=== PATIENT | male | born 1975 | race Caucasian/White ===

== ENCOUNTER 2018-06-15 21:47 | Emergency (ER) | payer MEDICAID ==
[~2018-06-15] VITALS: Ht 165.1 cm; Wt 74.4 kg
[~2018-06-15 21:47] MED LIST: AZIT250T PO; CODE118S PO; GLIP5TAB13 PO; IBUP-1542 PO; METF-849 PO; OSEL75CA23 PO
[2018-06-15 22:01] VITALS: BP 186/91; PULSE 88; RESP 19; Ht 165.1 cm; Wt 74.4 kg
[2018-06-16] MEDS ORDERED: CEPH-443 PO (01:35)
[2018-06-16] MEDS ORDERED: SULF1TAB31 PO (01:35)
--- NOTE | 2018-06-16 01:47 | ERD ---
ER Documentation Chief Complaint Chief Complaint C/O RT FOOT PAIN, REDNESS AND SWELLING X1.5 WEEKS, S/P STEPPING ON STAPLE HPI This is a 43-year-old male with history of diabetes mellitus presents ED with complaints of redness to sole of right foot times 1-1/2 weeks. Patient states that a staple accidentally fell into his shoe and he stepped on it causing a small puncture wound. Patient admits to some redness and swelling developing over the past 1-1/2 weeks. Denies any fever, chills, decreased range of motion, painful range of motion, tingling, numbness, lack sensation other symptoms. Unsure when last tetanus was. ROS All systems reviewed and are negative except as per history of present illness. Medications Home Meds Active Scripts Cephalexin* (Keflex*) 500 Mg Capsule, 500 MG PO QID for 10 Days, CAP Prov:NICKY JOSEPH PA-C 06/16/18 Sulfamethoxazole/Trimethoprim* (Bactrim Ds* Tablet) 1 Each Tablet, 1 TAB PO BID, #14 TAB Prov:NICKY JOSEPH PA-C 06/16/18 Ibuprofen* (Ibuprofen*) 600 Mg Tablet, 600 MG PO Q6, #20 TAB Prov:FRANCISCO VICENTE MD 07/25/15 Promethazine w/Codeine* (Phenergan w/Codeine* Syrup) 473 Ml Syrup, 10 ML PO Q6H PRN for COUGH, #120 ML Prov:FRANCISCO VICENTE MD 07/25/15 Oseltamivir Phosphate* (Tamiflu*) 75 Mg Capsule, 75 MG PO BID for 5 Days, CAP Prov:FRANCISCO VICENTE MD 07/25/15 Azithromycin* (Zithromax*) 250 Mg Tablet, 250 MG PO .ZPACK DIRECTED, #6 TAB TAKE 500 MG (2 TABS) THE FIRST DAY THEN 250 MG (1 TAB) DAYS 2-5 Prov:FRANCISCO VICENTE MD 07/25/15 Reported Medications Glipizide* (Glipizide*) Unknown Strength Tablet, PO BID, TAB 07/25/15 Metformin* (Glucophage*) Unknown Strength Tab, PO BID, TAB 07/25/15 Allergies Allergies: Coded Allergies: No Known Allergy (Unverified , 07/25/15) PMhx/Soc Medical and Surgical Hx: pt denies Surgical Hx History of Surgery: No Anesthesia Reaction: No Hx Neurological Disorder: No Hx Respiratory Disorders: Yes (previous bronchitis) Hx Cardiac Disorders: No Hx Psychiatric Problems: No Hx Miscellaneous Medical Probl: Yes (dm, htn) Hx Alcohol Use: No Hx Substance Use: No Hx Tobacco Use: No FmHx Family History: diabetes Physical Exam Vitals Vital Signs Date Temp Pulse Resp B/P (MAP) Pulse Ox O2 O2 Flow FiO2 Time Delivery Rate 06/15/18 97.7 88 19 186/91 100 22:01 (122) Physical Exam Physical Exam Vitals signs: Reviewed by me. General: Well developed, well nourished, in no acute distress. Patient is awake and alert. Head: Normocephalic, atraumatic. Respiratory: Clear to auscultation bilaterally with no wheezing, rhonchi, rales, no distress Cardiovascular: RRR, no murmurs, rubs, or gallops MSK: No edema, no unilateral swelling, 5/5 strength Lower Extremity -right Skin: On sole of right foot near ball of foot there is an area of redness and warmth, there is no fluctuant mass palpated, no lymphatic streaking, Compartments: Soft Motor: Full active range of motion /ankle/foot Sensation: Intact to light touch FDWS/MF/LF/P surfaces. Bones: Nontender/proximal tibia/ malleoli/foot Joints: No effusion or laxity Pulses/Perfusion: 2+ DP, Capillary refill < 2 seconds No difficulty ambulating Neurologic: Alert and oriented, moving all extremities, normal speech, no focal weakness, no cerebellar signs. Normal mentation Skin: warm and dry, No rash Psych: Normal mood Results 24 hrs Current Medications Medications Dose Sig/Mary Start Time Status Last (Trade) Ordered Route PRN Stop Time Admin Dose Reason Admin Diphtheria/ 0.5 ml ONCE ONCE 06/16/18 06/16/18 Tetanus/Acell IM* 02:00 06/16/18 01:42 Pertussis 02:01 (Adacel) Procedures/MDM ER COURSE: The patient was stable throughout ED course. I kept the patient and/or family informed of laboratory and diagnostic imaging results throughout the emergency room course. The patient was promptly evaluated and a treatment plan was devised based on H&P and other data. This plan was discussed with the patient who agreed and had no further questions or concerns prior to discharge. MEDICAL DECISION MAKIN-year-old male with a history of diabetes mellitus presents ED with redness to ball of right foot times 1/2 weeks. This is likely cellutlitis. There is no lymphatic streaking. There is no fluctuant mass or abscess to be drained. Low suspicion for deep space infection, compartment syndrome, abscess, sepsis, neurovascular injury, tendon injury, ostium myelitis, gangrene, compartment syndrome, septic joint, avascular necrosis, necrotizing fasciitis, septic arthritis,. Patient's vitals are stable and pt can be managed with close outpatient follow-up. Advised patient follow-up with primary care in the next 48 hours. Advised to return to ED with any worsening symptoms. DISPOSITION PLAN: We discussed follow up with the patient's primary care doctor within 24 to 48 hours. Patient counseled regarding my diagnostic impression and care plan. Prior to discharge all questions answered. Pt agrees with treatment plan and understands strict return precautions. Precautionary instructions provided including instructions to return to the ER if not improving or for any worsening or changing symptoms or concerns. SPECIALIST FOLLOW UP RECOMMENDED: None Patient has been advised to follow up with primary care in 1-2 days. Disclaimer: Inadvertent spelling and grammatical errors are likely due to EHR/dictation software use and do not reflect on the overall quality of patient care. Also, please note that the electronic time recorded on this note does not necessarily reflect the actual time of the patient encounter. Blood Pressure Assessment: Patient's blood pressure was elevated (>120/80) but appears stable without evidence of hypertension emergency or urgency. The patient was counseled about the risks of hypertension and urged to pursue outpatient monitoring and therapy within a week with their primary care physician. Departure Diagnosis: Primary Impression: Cellulitis of foot, right Condition: Stable Patient Instructions: Cellulitis Referrals: [facility] Usted se hendricks hecho un examen mdico de control que le indica que no est en jo-ann condicin que requiera tratamiento urgente en el Departamento de Emergencia. Un estudio ms profundo y el tratamiento de sarmiento condicin pueden esperar sin ningn riesgo hasta que usted sea atendida/o en el consultorio de sarmiento mdico o jo-ann clnica. Es responsabilidad suya arreglar jo-ann davon para el seguimiento del easton. MANEJO DE CONDICIONES NO URGENTES EN EL FUTURO 1) Si usted tiene un mdico de atencin primaria: Usted debera llamar a sarmiento mdico de atencin primaria antes de venir al departamento de emergencia. Despus de las horas de consultorio, sarmiento doctor o sarmiento asociado/a est disponible por telfono. El mdico o enfermero de dusty en el servicio telefnico puede asesorarle por joann medio para atender el problema, o easton contrario se puede programar jo-ann davon. 2) Si usted no tiene un mdico de atencin primaria: Llame al mdico o clnica de referencia que aparece abajo iman las horas de consultorio para hacer jo-ann davon para que le vean. CLINICAS: [facility] [phone] [facility] [phone] [address] [facility]. [facility] [phone] [address] [facility] [facility] [phone] [address] [facility]. [facility] [phone] [address] [facility]. [phone] [address] Additional Instructions: Paciente aconseja volver a Departamento de urgencias inmediatamente para sntomas nuevos o que empeoran . Paciente aconseja posteriores con el PCP en 1-2 romeo . Paciente verbaliza la comprehensin y est de acuerdo con el tratamiento y el curso de accin. Si el paciente no tiene ninguna de atencin primaria pueden seguir con [facility] [address] [place] [address] o [facility] [address] [address] NICKY JOSEPH PA-C Jun 16, 2018 01:47
[2018-06-16] MEDS ORDERED: DIPHTH/TET/ACEL PERTUSS (ADULT) 0.5 ML VIAL IM* ONE (02:00)
== END 2018-06-16 02:12 | disposition home or self-care (01) ==
LOC: FTE 21:47
DX: L03.115 Cellulitis of right lower limb (principal); E11.9 Type 2 diabetes mellitus without complications; I10 Essential (primary) hypertension; Z23 Encounter for immunization; Z79.84 Long term (current) use of oral hypoglycemic drugs
CPT/HCPCS: 90471; 90715; Z7502; 99283

== ENCOUNTER 2018-10-17 02:14 | Emergency (ER) | payer MEDICAID ==
[~2018-10-17] VITALS: Ht 170.2 cm; Wt 71.3 kg
[~2018-10-17 02:14] MED LIST changes: +CEPH-443 PO; +SULF1TAB31 PO
[2018-10-17 02:15] VITALS: Ht 170.2 cm; Wt 71.3 kg
--- NOTE | 2018-10-17 02:59 | ERD ---
ER Documentation Chief Complaint Chief Complaint C/O RT LOWER LEG AND RT FOOT PAIN AND SWELLING SINCE YESTERDAY, - INJURY HPI This is a 43-year-old male who presents to emerge department with complaints of right lower leg, right foot pain and swelling since yesterday. Denies any trauma. Denies headache, head injury, loss of consciousness, dizziness, neck pain, neck stiffness, throat pain, difficulty swallowing, difficulty breathing lying flat, shoulder pain, chest pain, back pain, abdominal pain, nausea, vomiting, constipation, diarrhea, urinary symptoms, loss of bowel and bladder control, difficulty walking due to pain, numbness or tingling sensation, calf pain, recent travel, recent major surgery in the last 3 weeks, calf pain, recent long travel, recent exposure to any illness, recent antibiotic use in the last 3 months, fever, chills, seizures. Past medical history: Diabetes. Surgical history: Denies. Social: Denies smoking, use of alcoholic beverages, use of illegal drugs. ROS All systems reviewed and are negative except as per history of present illness. Medications Home Meds Active Scripts Omeprazole* (Omeprazole*) 40 Mg Capsule.dr, 40 MG PO DAILY, #30 CAP Prov:PASILABAN,KLAR F 10/17/18 Ibuprofen* (Motrin*) 800 Mg Tab, 800 MG PO Q6H PRN for PAIN AND OR ELEVATED TEMP, #30 TAB Prov:PASILABAN,KLAR F 10/17/18 Cephalexin* (Keflex*) 500 Mg Capsule, 500 MG PO TID for 7 Days, CAP Prov:PASILABAN,KLAR F 10/17/18 Cephalexin* (Keflex*) 500 Mg Capsule, 500 MG PO QID for 10 Days, CAP Prov:NICKY JOSEPH PA-C 06/16/18 Sulfamethoxazole/Trimethoprim* (Bactrim Ds* Tablet) 1 Each Tablet, 1 TAB PO BID, #14 TAB Prov:NICKY JOSEPH PA-C 06/16/18 Ibuprofen* (Ibuprofen*) 600 Mg Tablet, 600 MG PO Q6, #20 TAB Prov:FRANCISCO VICENTE MD 07/25/15 Promethazine w/Codeine* (Phenergan w/Codeine* Syrup) 473 Ml Syrup, 10 ML PO Q6H PRN for COUGH, #120 ML Prov:FRANCISCO VICENTE MD 07/25/15 Oseltamivir Phosphate* (Tamiflu*) 75 Mg Capsule, 75 MG PO BID for 5 Days, CAP Prov:FRANCISCO VICENTE MD 07/25/15 Azithromycin* (Zithromax*) 250 Mg Tablet, 250 MG PO .ZPACK DIRECTED, #6 TAB TAKE 500 MG (2 TABS) THE FIRST DAY THEN 250 MG (1 TAB) DAYS 2-5 Prov:FRANCISCO VICENTE MD 07/25/15 Reported Medications Glipizide* (Glipizide*) Unknown Strength Tablet, PO BID, TAB 07/25/15 Metformin* (Glucophage*) Unknown Strength Tab, PO BID, TAB 07/25/15 Allergies Allergies: Coded Allergies: No Known Allergy (Unverified , 07/25/15) PMhx/Soc History of Surgery: No Anesthesia Reaction: No Hx Neurological Disorder: No Hx Respiratory Disorders: Yes (previous bronchitis) Hx Cardiac Disorders: No Hx Psychiatric Problems: No Hx Miscellaneous Medical Probl: Yes (dm, htn) Hx Alcohol Use: No Hx Substance Use: No Hx Tobacco Use: No Smoking Status: Never smoker Physical Exam Vitals Physical Exam Const: No acute distress Head: Atraumatic Eyes: Normal Conjunctiva ENT: Normal External Ears, Nose and Mouth. Neck: Full range of motion. No meningismus. Resp: Clear to auscultation bilaterally Cardio: Regular rate and rhythm, no murmurs Abd: Soft, non tender, non distended. Normal bowel sounds Skin: No petechiae or rashes Back: No midline or flank tenderness Ext: No cyanosis, or edema. Right calf: Tenderness to palpation. Right knee: No obvious deformity. Good and full range of motion. No swelling. Right ankle: Has mild swelling. No obvious deformity. Good and full range of motion. Skin is not warm to touch. Skin is no redness. Right foot: Mildly swollen. No pitting edema. Skin is not warm to touch. Skin is not red. Right pedal pulse is within normal limits. Capillary refills to right lower extremity is less than 2 seconds. Bilateral knees are symmetrical. Bilateral hips are stable and unremarkable. Left lower extremity is unremarkable. No neurovascular deficits. Ambulatory with steady gait. Neur: Awake and alert. Romberg test negative. No neurological deficits. Psych: Normal Mood and Affect Results 24 hrs Current Medications Medications Dose Sig/Mary Start Time Status Last (Trade) Ordered Route PRN Stop Time Admin Dose Reason Admin 1 tab ONCE ONCE 10/17/18 DC 10/17/18 Acetaminophen PO 03:00 10/17/18 03:24 / 03:01 Hydrocodone Bitart ([place] (10)) Procedures/MDM Diagnostic tests: Right lower extremity ultrasound: No sonographic evidence for deep venous thrombosis. X-ray of the right foot: No acute fractures or dislocations. Degenerative changes as above. X-ray of the right ankle: Mild soft tissue swelling along the right lateral ankle without acute fracture or dislocation. Treatment: [place] p.o. Re-evaluation: Denies lower extremity pain. No pitting edema bilaterally. Capillary refills to bilateral lower extremities are less than 2 seconds. No neurovascular deficit. Sensation is intact. Romberg test negative. No neurological deficit. Stated that he feels much better this time and that he is ready to go home. Stated that he is comfortable to go home. Differential diagnosis I have low suspicion for sepsis, osteomyelitis, necrotizing fasciitis, cellulitis, deep space infection, DVT, compartment syndrome. This case was discussed with my supervising physician, Dr. Maria L Lorenazna who agreed my medical decision making. Final diagnosis: Cellulitis. Leg swelling. Prescription: Motrin. Omeprazole. Keflex. Follow-up with PCP in the next 24-48 hours. Come back here in the emergency department for any new symptoms or any worsening symptoms. All questions and concerns were answered. Patient and family members verbalized understanding and agreed with plan of care. Hemodynamically stable on discharge. Departure Diagnosis: Primary Impression: Leg swelling Additional Impression: Cellulitis Condition: Stable Additional Instructions: Follow-up with PCP in the next 24-48 hours. Come back here in the emergency department for any new symptoms or any worsening symptoms. TIRSO ALBA Oct 17, 2018 02:59
[2018-10-17] MEDS ORDERED: HYDROCODONE/APAP (10/325) TAB PO ONE (03:00)
[2018-10-17] MEDS ORDERED: OMEP40CA6 PO (05:15)
[2018-10-17] MEDS ORDERED: IBUP800T48 PO (05:15)
[2018-10-17] MEDS ORDERED: CEPH-443 PO (05:15)
[2018-10-17 05:45] VITALS: BP 115/67; PULSE 99; RESP 18
== END 2018-10-17 05:46 | disposition home or self-care (01) ==
LOC: FTE 02:14
DX: L03.115 Cellulitis of right lower limb (principal); E11.9 Type 2 diabetes mellitus without complications; I10 Essential (primary) hypertension; Z79.4 Long term (current) use of insulin
CPT/HCPCS: 73610; 73630; 93971; Z7502; Z7610

== ENCOUNTER 2018-10-20 00:03 | Inpatient (IN) | payer MEDICAID ==
[~2018-10-20] VITALS: Ht 182.9 cm; Wt 72.3 kg
[~2018-10-20 00:03] MED LIST changes: +IBUP800T48 PO; +OMEP40CA6 PO
[2018-10-20 00:06] VITALS: Ht 182.9 cm; Wt 72.3 kg
[2018-10-20] MEDS ORDERED: VANCOMYCIN 1 GM (PMX) 250 ML IVPB STA (00:09)
[2018-10-20] MEDS ORDERED: PIPER-TAZO 3.375 GM IV (PMX) 100 ML IVPB STA (00:09)
[2018-10-20] MEDS ORDERED: ACETAMINOPHEN 325 MG TAB PO STA (00:09)
[2018-10-20] MEDS ORDERED: SODIUM CHLORIDE 0.9% 1L BAG IV* STA (00:09)
[2018-10-20] MEDS ORDERED: ACETAMINOPHEN 325 MG TAB PO PRN ×2 (01:00→03:30)
[2018-10-20] MEDS ORDERED: ONDANSETRON 4 MG INJ IV PRN ×2 (01:00→03:30)
--- NOTE | 2018-10-20 01:08 | ERD ---
ER Documentation Chief Complaint Chief Complaint Worse swelling to R foot and hx of diabetes HPI This Is a 43-year-old male who presents for of right foot swelling. Patient was called in as a code sepsis from triage. He had been noted to be tachycardic, with a temperature of 100.6. He was here on October 17, for a similar complaint with right foot swelling, at that time he was discharged on Keflex, and treated empirically for cellulitis. He had an ultrasound performed that was negative for DVT. He states that initially in May, he came in for cellulitis of that right foot, that was treated with outpatient antibiotics. The inciting factor of this was that he thinks that he stepped on nayely, and had a wound to this area that eventually became infected. He states that he has been off diabetic medications for some time, secondary to lack of access to care. ROS All systems reviewed and are negative except as per history of present illness. Medications Home Meds Active Scripts Omeprazole* (Omeprazole*) 40 Mg Capsule.dr, 40 MG PO DAILY, #30 CAP Prov:PASILABANERMAAR F 10/17/18 Ibuprofen* (Motrin*) 800 Mg Tab, 800 MG PO Q6H PRN for PAIN AND OR ELEVATED TEMP, #30 TAB Prov:STACYILAERMA VELEZAR F 10/17/18 Cephalexin* (Keflex*) 500 Mg Capsule, 500 MG PO TID for 7 Days, CAP Prov:PASILABAN,KLAR F 10/17/18 Cephalexin* (Keflex*) 500 Mg Capsule, 500 MG PO QID for 10 Days, CAP Prov:NICKY JOSEPH PA-C 06/16/18 Sulfamethoxazole/Trimethoprim* (Bactrim Ds* Tablet) 1 Each Tablet, 1 TAB PO BID, #14 TAB Prov:NICKY JOSEPH PA-C 06/16/18 Ibuprofen* (Ibuprofen*) 600 Mg Tablet, 600 MG PO Q6, #20 TAB Prov:FRANCISCO VICENTE MD 07/25/15 Promethazine w/Codeine* (Phenergan w/Codeine* Syrup) 473 Ml Syrup, 10 ML PO Q6H PRN for COUGH, #120 ML Prov:FRANCISCO VICENTE MD 07/25/15 Oseltamivir Phosphate* (Tamiflu*) 75 Mg Capsule, 75 MG PO BID for 5 Days, CAP Prov:FRANCISCO VICENTE MD 07/25/15 Azithromycin* (Zithromax*) 250 Mg Tablet, 250 MG PO .NilsonPACK DIRECTED, #6 TAB TAKE 500 MG (2 TABS) THE FIRST DAY THEN 250 MG (1 TAB) DAYS 2-5 Prov:FRANCISCO VICENTE MD 07/25/15 Reported Medications Glipizide* (Glipizide*) Unknown Strength Tablet, PO BID, TAB 07/25/15 Metformin* (Glucophage*) Unknown Strength Tab, PO BID, TAB 07/25/15 Allergies Allergies: Coded Allergies: No Known Allergy (Unverified , 07/25/15) PMhx/Soc History of Surgery: No Anesthesia Reaction: No Hx Neurological Disorder: No Hx Respiratory Disorders: Yes (previous bronchitis) Hx Cardiac Disorders: No Hx Psychiatric Problems: No Hx Miscellaneous Medical Probl: Yes (dm, htn) Hx Alcohol Use: No Hx Substance Use: No Hx Tobacco Use: No Smoking Status: Never smoker Physical Exam Vitals Vital Signs Date Temp Pulse Resp B/P (MAP) Pulse Ox O2 O2 Flow FiO2 Time Delivery Rate 10/20/18 99.9 89 19 151/71 99 Room Air 00:45 (97) 10/20/18 Nasal 00:45 Cannula 10/20/18 100.6 108 24 160/81 99 00:06 (107) Physical Exam Const: Well-developed, well-nourished, nontoxic Head: Atraumatic Eyes: Normal Conjunctiva ENT: Normal External Ears, Nose and Mouth. Neck: Full range of motion. No meningismus. Resp: Clear to auscultation bilaterally Cardio: Regular rate and rhythm, no murmurs Abd: Soft, non tender, non distended. Normal bowel sounds Skin: No petechiae or rashes Back: No midline or flank tenderness Ext: No cyanosis. There is 1+ pitting edema noted to the right lower extremity, there is redness and warmth. There is discoloration of the toes distally, radial pulses 2+. Neur: Awake and alert Psych: Normal Mood and Affect Result Diagram: 10/20/18 0022 Results 24 hrs Laboratory Tests Test 10/20/18 00:15 10/20/18 00:22 10/20/18 00:26 Urine Color YELLOW Urine Clarity CLEAR Urine pH 6.0 Urine Specific [place] 1.027 Urine Ketones NEGATIVE mg/dL Urine Nitrite NEGATIVE mg/dL Urine Bilirubin NEGATIVE mg/dL Urine Urobilinogen 1+ mg/dL Urine Leukocyte Esterase NEGATIVE Dania/ul Urine Microscopic RBC 0 /HPF Urine Microscopic WBC 1 /HPF Urine Hemoglobin 1+ mg/dL Urine Glucose 3+ mg/dL Urine Total Protein NEGATIVE mg/dl White Blood Count 14.6 10^3/ul Red Blood Count 4.06 10^6/ul Hemoglobin 11.9 g/dl Hematocrit 34.8 % Mean Corpuscular Volume 85.7 fl Mean Corpuscular Hemoglobin 29.3 pg Mean Corpuscular 34.2 g/dl Hemoglobin Concent Red Cell Distribution Width 11.6 % Platelet Count 252 10^3/UL Mean Platelet Volume 9.8 fl Immature Granulocytes % 0.500 % Neutrophils % 80.3 % Lymphocytes % 10.1 % Monocytes % 8.2 % Eosinophils % 0.6 % Basophils % 0.3 % Nucleated Red Blood Cells % 0.0 /100WBC Immature Granulocytes # 0.070 10^3/ul Neutrophils # 11.7 10^3/ul Lymphocytes # 1.5 10^3/ul Monocytes # 1.2 10^3/ul Eosinophils # 0.1 10^3/ul Basophils # 0.0 10^3/ul Nucleated Red Blood Cells # 0.0 10^3/ul Prothrombin Time 12.8 Sec Prothrombin Time Ratio 1.0 INR International 0.95 Normalized Ratio Activated Partial Thromboplast 35.7 Sec Time POC Venous Lactate 1.6 mmol/L Current Medications Medications Dose Sig/Mary Start Time Status Last (Trade) Ordered Route PRN Stop Time Admin Dose Reason Admin Sodium 2,170 ml BOLUS OVER 2 10/20/18 DC 10/20/18 Chloride HOURS STAT 00:10/20/18 00:36 (NS) IV* 00:12 650 mg ONCE STAT 10/20/18 DC 10/20/18 Acetaminophen PO 00:09 10/20/18 00:36 (Tylenol 00:12 Tab) Vancomycin 250 ml @ ONCE STAT 10/20/18 HCl 125 mls/hr IVPB 00:09 10/20/18 02:08 Piperacillin 100 ml @ ONCE STAT 10/20/18 DC 10/20/18 Sod/ 200 mls/hr IVPB 00:09 10/20/18 00:36 Tazobactam 00:38 Sod Ondansetron 4 mg BRIDGE ORDER 10/20/18 HCl (Zofran PRN IV 01:00 10/21/18 Inj) NAUSEA/VOMITI 00:59 NG 650 mg ER BRIDGE 10/20/18 Acetaminophen PRN PO 01:00 10/21/18 (Tylenol .MILD PAIN 00:59 Tab) 1-3 OR TEMP Procedures/MDM Is a 43-year-old male who presents for evaluation of right foot swelling. Code sepsis was called, patient was given vancomycin and Zosyn, he has remained he medically stable, I have a lower suspicion for DVT, given his fever, and physical exam, additionally he had an ultrasound 2 days ago, which was negative for DVT. Patient will be admitted to [facility], his blood sugar was in the 440s, but he has no signs or symptoms of DKA. EKG: Rate/Rhythm: Sinus tachycardia QRS, ST, T-waves: No changes consistent w/ acute ischemia Impression: No evidence of ischemia or arrhythmia Accepting Care Team: Current data and ongoing care discussed. Primary: Edwin Consulting: None Outstanding Data: none Departure Diagnosis: Primary Impression: Cellulitis Site of cellulitis: unspecified site Qualified Codes: L03.90 - Cellulitis, unspecified Additional Impression: Sepsis Sepsis type: sepsis due to unspecified organism Qualified Codes: A41.9 - Sepsis, unspecified organism Condition: Serious APARNA LANDA MD Oct 20, 2018 01:08
[2018-10-20] MEDS ORDERED: INSULIN REGULAR, HUMAN 100 UNIT/1 ML 3ML VIAL IVP STA (02:37)
[2018-10-20] MEDS ORDERED: DEXTROSE 50% 50 ML SYRINGE IV PRN ×3 (03:00→04:00)
[2018-10-20 03:12] VITALS: BP 135/70; PULSE 99; RESP 18
[2018-10-20] MEDS ORDERED: PROMETHAZINE/CODEINE 5ML CUP PO PRN (03:30)
[2018-10-20] MEDS ORDERED: NACL 0.9% 3 ML SYG IV SCH (03:30)
[2018-10-20] MEDS ORDERED: ALBUTEROL/IPRATROPIUM (NEB) 3 ML AMP HHN PRN (03:30)
[2018-10-20] MEDS ORDERED: GLUCOSE GEL 15 GRAM TUBE BUCCAL PRN (04:00)
[2018-10-20] MEDS ORDERED: GLUCOSE GEL 15 GRAM TUBE PO PRN ×2 (04:00)
[2018-10-20] MEDS ORDERED: GLUCAGON 1 MG INJ IM PRN (04:00)
[2018-10-20] MEDS: SOD CHLORIDE 0.9% 1,000 ML IV SCH ×3 (04:11→20:36)
[2018-10-20] MEDS: VANCOMYCIN 1 GM 250 ML IVPB SCH ×3 (05:54→22:10)
[2018-10-20] MEDS: PANTOPRAZOLE (EC) 40 MG TAB PO SCH (05:54)
[2018-10-20] MEDS: IBUPROFEN 600 MG TAB PO SCH ×4 (05:55→23:47)
--- NOTE | 2018-10-20 06:39 | HP ---
Date/Time of Note Date/Time of Note DATE: 10/20/18 TIME: 06:31 Assessment/Plan VTE Prophylaxis Risk score (from Ns)>0 risk: 2 SCD applied (from Ns): Yes Pharmacological prophylaxis: heparin Lines/Catheters IV Catheter Type (from Nrs): Peripheral IV Assessment/Plan Assessment/Plan 1. Right foot cellulitis -IV antibiotic, IV fluid 2. Sepsis, as evidenced by fever, tachycardia and leukocytosis, secondary to above -IV antibiotic, IV fluid, follow-up culture results 3. Type 2 diabetes with hyperglycemia, no DKA -Insulin while in-house Result Diagram: 10/20/18 0522 10/20/18 0022 Results 24hrs Laboratory Tests Test 10/20/18 00:15 10/20/18 00:22 10/20/18 00:26 10/20/18 02:48 Urine Color YELLOW Urine Clarity CLEAR Urine pH 6.0 Urine Specific [place] 1.027 Urine Ketones NEGATIVE Urine Nitrite NEGATIVE Urine Bilirubin NEGATIVE Urine Urobilinogen 1+ H Urine Leukocyte Esterase NEGATIVE Urine Microscopic RBC 0 Urine Microscopic WBC 1 Urine Hemoglobin 1+ H Urine Glucose 3+ H Urine Total Protein NEGATIVE White Blood Count 14.6 #H Red Blood Count 4.06 L Hemoglobin 11.9 L Hematocrit 34.8 L Mean Corpuscular Volume 85.7 Mean Corpuscular 29.3 Hemoglobin Mean Corpuscular 34.2 Hemoglobin Concent Red Cell Distribution 11.6 Width Platelet Count 252 Mean Platelet Volume 9.8 Immature Granulocytes % 0.500 H Neutrophils % 80.3 H Lymphocytes % 10.1 L Monocytes % 8.2 Eosinophils % 0.6 Basophils % 0.3 Nucleated Red Blood 0.0 Cells % Immature Granulocytes # 0.070 H Neutrophils # 11.7 H Lymphocytes # 1.5 Monocytes # 1.2 H Eosinophils # 0.1 Basophils # 0.0 Nucleated Red Blood 0.0 Cells # Prothrombin Time 12.8 Prothrombin Time Ratio 1.0 INR International 0.95 Normalized Ratio Activated 35.7 H Partial Thromboplast Time Sodium Level 135 Potassium Level 4.3 Chloride Level 101 Carbon Dioxide Level 22 Anion Gap 12 Blood Urea Nitrogen 12 Creatinine 0.71 Est Glomerular Filtrat > 60 Rate mL/min Glucose Level 440 *H Calcium Level 9.0 Total Bilirubin 0.3 Direct Bilirubin 0.00 Indirect Bilirubin 0.3 Aspartate Amino 21 Transf (AST/SGOT) Alanine 31 Aminotransferase (ALT/SG PT) Alkaline Phosphatase 171 H Troponin I < 0.012 Total Protein 7.8 Albumin 4.0 Globulin 3.80 H Albumin/Globulin Ratio 1.05 POC Venous Lactate 1.6 Bedside Glucose 272 H Test 10/20/18 03:06 10/20/18 03:39 10/20/18 05:22 Bedside Glucose 297 H Lactic Acid Level 1.0 1.2 White Blood Count 12.5 H Red Blood Count 3.42 L Hemoglobin 10.2 L Hematocrit 29.4 L Mean Corpuscular Volume 86.0 Mean Corpuscular 29.8 Hemoglobin Mean Corpuscular 34.7 Hemoglobin Concent Red Cell Distribution 11.6 Width Platelet Count 208 Mean Platelet Volume 10.0 Immature Granulocytes % 0.300 Neutrophils % 76.0 Lymphocytes % 13.6 L Monocytes % 9.3 Eosinophils % 0.6 Basophils % 0.2 Nucleated Red Blood 0.0 Cells % Immature Granulocytes # 0.040 H Neutrophils # 9.5 H Lymphocytes # 1.7 Monocytes # 1.2 H Eosinophils # 0.1 Basophils # 0.0 Nucleated Red Blood 0.0 Cells # Hemoglobin A1c 9.2 H HPI/ROS Admit Date/Time Admit Date/Time Oct 20, 2018 at 00:52 Hx of Present Illness Patient is a 43-year-old male with a history of type II diabetes who presents the ER complaining of right foot swelling and redness. Patient was seen in our ER in June of this year complaining of of redness to sole of right foot. At that time, he stated that a staple accidentally fell into his shoe and he stepped on it causing a small puncture wound. He was seen in our ER 3 days ago complaining of right foot swelling and redness. At that time he was discharged with Keflex. Because of worsening symptoms, he came back for reevaluation. Three days ago, he had lower extremity venous study which was negative for DVT and right ankle x-ray showed mild soft tissue swelling along the right lateral ankle without acute fracture or dislocation. When presented to ER this time, patient was febrile with a temperature of 100.6 with a heart rate of 108, WBC almost 15,000. Right foot x-ray shows soft tissue swelling of the dorsal midfoot without soft-tissue gas or foreign body. Patient also presented with a blood glucose of 440, no DKA. PMH/Family/Social Past Medical History Past Surgical Hx: other Family History Significant Family History: no pertinent family hx Social History Alcohol Use: none Smoking Status: Never smoker Drug Use: none Exam Constitutional: other (No acute distress) Head: normocephalic, atraumatic Eyes: EOMI, PERRL Respiratory: clear to auscultation, normal air movement Cardiovascular: regular rate and rhythm Gastrointestinal: soft Extremities: normal pulses Medications Current Medications Ondansetron HCl (Zofran Inj) 4 mg BRIDGE ORDER PRN IV NAUSEA/VOMITING; Start 10/20/18 at 01:00; Stop 10/21/18 at 00:59 Acetaminophen (Tylenol Tab) 650 mg ER BRIDGE PRN PO .MILD PAIN 1-3 OR TEMP; Start 10/20/18 at 01:00; Stop 10/21/18 at 00:59 Dextrose (D50w Syringe) ONCE PRN IV DECREASED GLUCOSE; Start 10/20/18 at 03:00; Stop 10/21/18 at 02:59 Sodium Chloride 1,000 ml @ 125 mls/hr Q8H IV Last administered on 10/20/18at 04:11; Admin Dose 125 MLS/HR; Start 10/20/18 at 03:26 IV Flush (NS 3 ml) 3 ml PER PROTOCOL IV ; Start 10/20/18 at 03:30 Ondansetron HCl (Zofran Inj) 4 mg Q6H PRN IV NAUSEA/VOMITING; Start 10/20/18 at 03:30 Acetaminophen (Tylenol Tab) 650 mg Q6H PRN PO .PAIN 1-3 OR TEMP; Start 10/20/18 at 03:30 Heparin Sodium (Porcine) (Heparin (5000 Units/1ml)) 5,000 unit Q12 SC ; Start 10/20/18 at 09:00 Albuterol/ Ipratropium (Duoneb) 3 ml Q2H RESP THERAPY PRN HHN SHORTNESS OF BREATH; Start 10/20/18 at 03:30 Ibuprofen (Motrin) 600 mg Q6 PO Last administered on 10/20/18at 05:55; Admin Dose 600 MG; Start 10/20/18 at 06:00 Promethazine HCl/ Codeine (Phenergan/ Codeine) 10 ml Q6H PRN PO COUGH; Start 10/20/18 at 03:30 Metformin HCl (Glucophage) 1,000 mg BID WITH MEALS PO ; Start 10/20/18 at 08:00 Vancomycin HCl (Vanco Iv Per Pharmacy) VANCOMYCIN PER PHARMACY PER PROTOCOL XX ; Start 10/20/18 at 09:00 Cefepime HCl 50 ml @ 100 mls/hr Q12 IVPB ; Start 10/20/18 at 09:00 Diagnostic Test (Pha) (Accu-Chek) 1 ea 02 XX ; Start 10/21/18 at 02:00 Insulin Glargine (Lantus) 14 units DAILY@0800 SC ; Start 10/20/18 at 08:00 Insulin Aspart (Novolog Insulin Pen) 6 unit WITH MEALS SC ; Start 10/20/18 at 07:35 Insulin Aspart (Novolog Insulin Pen) NOVOLOG *MODERATE* ALGORITHM WITH MEALS BEDTIME SC ; Start 10/20/18 at 08:00 Pantoprazole (Protonix Tab) 40 mg DAILY@06 PO Last administered on 10/20/18at 05:54; Admin Dose 40 MG; Start 10/20/18 at 06:00 Miscellaneous Information 1 ea NOTE XX ; Start 10/20/18 at 04:00 Glucose (Glutose) 15 gm Q15M PRN PO DECREASED GLUCOSE; Start 10/20/18 at 04:00 Glucose (Glutose) 22.5 gm Q15M PRN PO DECREASED GLUCOSE; Start 10/20/18 at 04:00 Dextrose (D50w Syringe) 25 ml Q15M PRN IV DECREASED GLUCOSE; Start 10/20/18 at 04:00 Dextrose (D50w Syringe) 50 ml Q15M PRN IV DECREASED GLUCOSE; Start 10/20/18 at 04:00 Glucagon (Glucagen) 1 mg Q15M PRN IM DECREASED GLUCOSE; Start 10/20/18 at 04:00 Glucose (Glutose) 15 gm Q15M PRN BUCCAL DECREASED GLUCOSE; Start 10/20/18 at 04:00 Vancomycin HCl 250 ml @ 125 mls/hr Q8H IVPB Last administered on 10/20/18at 05:54; Admin Dose 125 MLS/HR; Start 10/20/18 at 06:00 Miscellaneous Information (*Rx Drug Level Order Reminder*) VANCOMYCIN TROUGH LEVEL 0500 ONCE XX ; Start 10/21/18 at 05:00; Stop 10/21/18 at 05:01 Coded Allergies: No Known Allergy (Unverified , 07/25/15) Social History Smoking Status: Never smoker Exam/Review of Systems Vital Signs Vitals Vital Signs Date Temp Pulse Resp B/P (MAP) Pulse Ox O2 O2 Flow FiO2 Time Delivery Rate 10/20/18 98.7 05:55 10/20/18 99 18 135/70 99 Room Air 03:12 (91) RHONDA PERALTA MD Oct 20, 2018 06:39
[2018-10-20 07:25] VITALS: BP 112/56; PULSE 85; RESP 16
[2018-10-20] MEDS: INSULIN ASPART [NOVOLOG] 3 ML PEN SC SCH ×7 (07:59→20:29)
[2018-10-20] MEDS: INSULIN GLARGINE [LANTus] (100 UNITS/ML) SYG SC SCH (08:06)
[2018-10-20] MEDS: metFORMIN 500 MG TAB PO SCH ×2 (08:06→17:38)
[2018-10-20] MEDS: CEFEPIME 1GM/50 ML (PMX) 50 ML IVPB SCH ×2 (08:56→20:25)
[2018-10-20] MEDS ORDERED: VANCOMYCIN IV PER PHARMACY XX SCH (09:00)
[2018-10-20] MEDS ORDERED: NON-FORMULARY/PATIENT OWN MED (Omeprazole* 40 MG) PO SCH (09:00)
[2018-10-20] MEDS: HEPARIN 5,000 UNIT/1 ML VIAL SC SCH ×2 (09:43→20:28)
--- NOTE | 2018-10-20 13:11 | CONS ---
DATE OF ADMISSION: 10/20/2018 DATE OF CONSULTATION: 10/20/2018 TYPE OF CONSULTATION: Infectious disease. REASON FOR CONSULTATION: Antibiotic management. HISTORY OF PRESENT ILLNESS: Ranjeet Mondragon is a 43-year-old male who presents to the Emergency Room with right foot swelling. The patient was called in as a CODE SEPSIS from triage. He has been noted to be tachycardic with a temperature of 100.6. He was seen on 10/17/2018 for a simil ar complaint with right foot swelling and at that time, he was discharged on Keflex and treated empir ically for cellulitis. He had an ultrasound performed that was negative for DVT. He came in in [facility] for cellulitis of the right foot that was treated with outpatient antibiotics. At that time, he feels that he stepped on nayely and has a wound in the area that became infected. He has been off his diabetic medicines for some time. His past problems include diabetes, hypertension and bronchiti s. PAST MEDICAL HISTORY: As outlined. FAMILY HISTORY: Noncontributory. SOCIAL HISTORY: He does not smoke, drink or abuse drugs. PHYSICAL EXAMINATION: VITAL SIGNS: Temperature on admission was 100.6. SKIN: Without generalized rash. HEENT: Within normal limits. NECK: Supple. LYMPH NODES: None palpable. CHEST: Decreased breath sounds at the bases. HEART: Without murmur or gallop. ABDOMEN: Soft, nontender, without organosplenomegaly or masses. EXTREMITIES: Without cyanosis or clubbing. He has 1+ edema to the right lower extremity with rednes s and warmth. There is discoloration of the toes distally. His radial pulses are 2+. RECTAL AND GENITAL: Deferred. NEUROLOGIC: No focal neurological abnormality. ANCILLARY LABORATORY DATA: White count is 14.6, H and H 11.9 and 34.8, platelet count 252,000. Urin alysis negative for leukocyte esterase. His white count was 14.6 with 80% neutrophils. IMPRESSION AND PLAN: Patient was started on vancomycin and Zosyn. He comes in for right foot swelli ng and cellulitis. He should be seen by podiatry. He should be on insulin while in house because hi s blood glucose today is 440, white count now of 12.5. I will dictate my findings to the hospitalist s. Dictated By: MARANDA ECHEVARRIA MD, JD/NTS Conf#: [id number] [facility]#: [id number] CC: RHONDA PERALTA MD;*EndCC*
[2018-10-20 14:13] VITALS: BP 121/63; PULSE 90; RESP 17
--- NOTE | 2018-10-20 14:58 | PN ---
Date/Time of Note Date/Time of Note DATE: 10/20/18 TIME: 14:55 Assessment/Plan VTE Prophylaxis Risk score (from [facility])>0 risk: 2 SCD applied (from [facility]): Yes Pharmacological prophylaxis: NA/contraindicated Pharm contraindication: low risk/ambulating Lines/Catheters IV Catheter Type (from [facility]): Peripheral IV Assessment/Plan Hospital Course 1. Right foot cellulitis -IV antibiotic -HerID consult to follow - antipyretics prn 2. Sepsis, as evidenced by fever, tachycardia and leukocytosis, secondary to #1 -cultures pending -continue abx 3. Type 2 diabetes with hyperglycemia, no DKA -continue insulin. will adjust as needed Dispo/Plan. continue with abx. awaiting cultures. monitor for improvement Discussed POC with Dr. Christianson Result Diagram: 10/20/1852110/20/18521 Results 24hrs Laboratory Tests Test 10/20/18 00:15 10/20/18 00:22 10/20/18 00:26 10/20/18 02:48 Urine Color YELLOW Urine Clarity CLEAR Urine pH 6.0 Urine Specific [place] 1.027 Urine Ketones NEGATIVE Urine Nitrite NEGATIVE Urine Bilirubin NEGATIVE Urine Urobilinogen 1+ H Urine Leukocyte Esterase NEGATIVE Urine Microscopic RBC 0 Urine Microscopic WBC 1 Urine Hemoglobin 1+ H Urine Glucose 3+ H Urine Total Protein NEGATIVE White Blood Count 14.6 #H Red Blood Count 4.06 L Hemoglobin 11.9 L Hematocrit 34.8 L Mean Corpuscular Volume 85.7 Mean Corpuscular 29.3 Hemoglobin Mean Corpuscular 34.2 Hemoglobin Concent Red Cell Distribution 11.6 Width Platelet Count 252 Mean Platelet Volume 9.8 Immature Granulocytes % 0.500 H Neutrophils % 80.3 H Lymphocytes % 10.1 L Monocytes % 8.2 Eosinophils % 0.6 Basophils % 0.3 Nucleated Red Blood 0.0 Cells % Immature Granulocytes # 0.070 H Neutrophils # 11.7 H Lymphocytes # 1.5 Monocytes # 1.2 H Eosinophils # 0.1 Basophils # 0.0 Nucleated Red Blood 0.0 Cells # Prothrombin Time 12.8 Prothrombin Time Ratio 1.0 INR International 0.95 Normalized Ratio Activated 35.7 H Partial Thromboplast Time Sodium Level 135 Potassium Level 4.3 Chloride Level 101 Carbon Dioxide Level 22 Anion Gap 12 Blood Urea Nitrogen 12 Creatinine 0.71 Est Glomerular Filtrat > 60 Rate mL/min Glucose Level 440 *H Calcium Level 9.0 Total Bilirubin 0.3 Direct Bilirubin 0.00 Indirect Bilirubin 0.3 Aspartate Amino 21 Transf (AST/SGOT) Alanine 31 Aminotransferase (ALT/SG PT) Alkaline Phosphatase 171 H Troponin I < 0.012 Total Protein 7.8 Albumin 4.0 Globulin 3.80 H Albumin/Globulin Ratio 1.05 POC Venous Lactate 1.6 Bedside Glucose 272 H Test 10/20/18 03:06 10/20/18 03:39 10/20/18 05:22 10/20/18 07:56 Bedside Glucose 297 H 249 H Lactic Acid Level 1.0 1.2 White Blood Count 12.5 H Red Blood Count 3.42 L Hemoglobin 10.2 L Hematocrit 29.4 L Mean Corpuscular Volume 86.0 Mean Corpuscular 29.8 Hemoglobin Mean Corpuscular 34.7 Hemoglobin Concent Red Cell Distribution 11.6 Width Platelet Count 208 Mean Platelet Volume 10.0 Immature Granulocytes % 0.300 Neutrophils % 76.0 Lymphocytes % 13.6 L Monocytes % 9.3 Eosinophils % 0.6 Basophils % 0.2 Nucleated Red Blood 0.0 Cells % Immature Granulocytes # 0.040 H Neutrophils # 9.5 H Lymphocytes # 1.7 Monocytes # 1.2 H Eosinophils # 0.1 Basophils # 0.0 Nucleated Red Blood 0.0 Cells # Sodium Level 138 Potassium Level 4.2 Chloride Level 109 Carbon Dioxide Level 21 Anion Gap 8 Blood Urea Nitrogen 10 Creatinine 0.62 Est Glomerular Filtrat > 60 Rate mL/min Glucose Level 294 #H Hemoglobin A1c 9.2 H Calcium Level 7.6 L Phosphorus Level 2.9 Magnesium Level 1.7 Total Bilirubin 0.3 Direct Bilirubin 0.00 Indirect Bilirubin 0.3 Aspartate Amino 22 Transf (AST/SGOT) Alanine 38 Aminotransferase (ALT/SG PT) Alkaline Phosphatase 125 H Total Protein 5.7 #L Albumin 2.7 #L Globulin 3.00 Albumin/Globulin Ratio 0.90 Test 10/20/18 12:12 Bedside Glucose 195 Subjective 24 Hr Interval Summary Free Text/Dictation reports swelling and pain on RLE Exam/Review of Systems Exam Vitals Vital Signs Date Temp Pulse Resp B/P (MAP) Pulse Ox O2 O2 Flow FiO2 Time Delivery Rate 10/20/18 98.3 90 17 121/63 96 Room Air 14:13 (82) Intake and Output 10/19/18 10/19/18 10/20/18 1515:00 23:00 07:00 IntakeIntake Total 250 ml BalanceBalance 250 ml Constitutional: alert, oriented Psych: nl mood/affect Neck: supple, non-tender Respiratory: clear to auscultation Cardiovascular: regular rate and rhythm Gastrointestinal: soft Musculoskeletal: swelling (right foot with erythema ) Neurological: CLINICAL PARTNER II-XII intact, nl mental status, nl speech Results Results 24hrs Laboratory Tests Test 10/20/18 00:15 10/20/18 00:22 10/20/18 00:26 10/20/18 02:48 Urine Color YELLOW Urine Clarity CLEAR Urine pH 6.0 Urine Specific [place] 1.027 Urine Ketones NEGATIVE Urine Nitrite NEGATIVE Urine Bilirubin NEGATIVE Urine Urobilinogen 1+ H Urine Leukocyte Esterase NEGATIVE Urine Microscopic RBC 0 Urine Microscopic WBC 1 Urine Hemoglobin 1+ H Urine Glucose 3+ H Urine Total Protein NEGATIVE White Blood Count 14.6 #H Red Blood Count 4.06 L Hemoglobin 11.9 L Hematocrit 34.8 L Mean Corpuscular Volume 85.7 Mean Corpuscular 29.3 Hemoglobin Mean Corpuscular 34.2 Hemoglobin Concent Red Cell Distribution 11.6 Width Platelet Count 252 Mean Platelet Volume 9.8 Immature Granulocytes % 0.500 H Neutrophils % 80.3 H Lymphocytes % 10.1 L Monocytes % 8.2 Eosinophils % 0.6 Basophils % 0.3 Nucleated Red Blood 0.0 Cells % Immature Granulocytes # 0.070 H Neutrophils # 11.7 H Lymphocytes # 1.5 Monocytes # 1.2 H Eosinophils # 0.1 Basophils # 0.0 Nucleated Red Blood 0.0 Cells # Prothrombin Time 12.8 Prothrombin Time Ratio 1.0 INR International 0.95 Normalized Ratio Activated 35.7 H Partial Thromboplast Time Sodium Level 135 Potassium Level 4.3 Chloride Level 101 Carbon Dioxide Level 22 Anion Gap 12 Blood Urea Nitrogen 12 Creatinine 0.71 Est Glomerular Filtrat > 60 Rate mL/min Glucose Level 440 *H Calcium Level 9.0 Total Bilirubin 0.3 Direct Bilirubin 0.00 Indirect Bilirubin 0.3 Aspartate Amino 21 Transf (AST/SGOT) Alanine 31 Aminotransferase (ALT/SG PT) Alkaline Phosphatase 171 H Troponin I < 0.012 Total Protein 7.8 Albumin 4.0 Globulin 3.80 H Albumin/Globulin Ratio 1.05 POC Venous Lactate 1.6 Bedside Glucose 272 H Test 10/20/18 03:06 10/20/18 03:39 10/20/18 05:22 10/20/18 07:56 Bedside Glucose 297 H 249 H Lactic Acid Level 1.0 1.2 White Blood Count 12.5 H Red Blood Count 3.42 L Hemoglobin 10.2 L Hematocrit 29.4 L Mean Corpuscular Volume 86.0 Mean Corpuscular 29.8 Hemoglobin Mean Corpuscular 34.7 Hemoglobin Concent Red Cell Distribution 11.6 Width Platelet Count 208 Mean Platelet Volume 10.0 Immature Granulocytes % 0.300 Neutrophils % 76.0 Lymphocytes % 13.6 L Monocytes % 9.3 Eosinophils % 0.6 Basophils % 0.2 Nucleated Red Blood 0.0 Cells % Immature Granulocytes # 0.040 H Neutrophils # 9.5 H Lymphocytes # 1.7 Monocytes # 1.2 H Eosinophils # 0.1 Basophils # 0.0 Nucleated Red Blood 0.0 Cells # Sodium Level 138 Potassium Level 4.2 Chloride Level 109 Carbon Dioxide Level 21 Anion Gap 8 Blood Urea Nitrogen 10 Creatinine 0.62 Est Glomerular Filtrat > 60 Rate mL/min Glucose Level 294 #H Hemoglobin A1c 9.2 H Calcium Level 7.6 L Phosphorus Level 2.9 Magnesium Level 1.7 Total Bilirubin 0.3 Direct Bilirubin 0.00 Indirect Bilirubin 0.3 Aspartate Amino 22 Transf (AST/SGOT) Alanine 38 Aminotransferase (ALT/SG PT) Alkaline Phosphatase 125 H Total Protein 5.7 #L Albumin 2.7 #L Globulin 3.00 Albumin/Globulin Ratio 0.90 Test 10/20/18 12:12 Bedside Glucose 195 Medications Medication Current Medications Sodium Chloride 1,000 ml @ 125 mls/hr Q8H IV Last administered on 10/20/18at 04:11; Admin Dose 125 MLS/HR; Start 10/20/18 at 03:26 IV Flush (NS 3 ml) 3 ml PER PROTOCOL IV ; Start 10/20/18 at 03:30 Ondansetron HCl (Zofran Inj) 4 mg Q6H PRN IV NAUSEA/VOMITING; Start 10/20/18 at 03:30 Acetaminophen (Tylenol Tab) 650 mg Q6H PRN PO .PAIN 1-3 OR TEMP; Start 10/20/18 at 03:30 Heparin Sodium (Porcine) (Heparin (5000 Units/1ml)) 5,000 unit Q12 SC Last administered on 10/20/18at 09:43; Admin Dose 5,000 UNIT; Start 10/20/18 at 09:00 Albuterol/ Ipratropium (Duoneb) 3 ml Q2H RESP THERAPY PRN HHN SHORTNESS OF BREATH; Start 10/20/18 at 03:30 Ibuprofen (Motrin) 600 mg Q6 PO Last administered on 10/20/18at 13:46; Admin Dose 600 MG; Start 10/20/18 at 06:00 Promethazine HCl/ Codeine (Phenergan/ Codeine) 10 ml Q6H PRN PO COUGH; Start 10/20/18 at 03:30 Metformin HCl (Glucophage) 1,000 mg BID WITH MEALS PO Last administered on 10/20/18at 08:06; Admin Dose 1,000 MG; Start 10/20/18 at 08:00 Vancomycin HCl (Vanco Iv Per Pharmacy) VANCOMYCIN PER PHARMACY PER PROTOCOL XX ; Start 10/20/18 at 09:00 Cefepime HCl 50 ml @ 100 mls/hr Q12 IVPB Last administered on 10/20/18at 08:56; Admin Dose 100 MLS/HR; Start 10/20/18 at 09:00 Diagnostic Test (Pha) (Accu-Chek) 1 ea 02 XX ; Start 10/21/18 at 02:00 Insulin Glargine (Lantus) 14 units DAILY@0800 SC Last administered on 10/20/18at 08:06; Admin Dose 14 UNITS; Start 10/20/18 at 08:00 Insulin Aspart (Novolog Insulin Pen) 6 unit WITH MEALS SC Last administered on 10/20/18at 12:22; Admin Dose 6 UNIT; Start 10/20/18 at 07:35 Insulin Aspart (Novolog Insulin Pen) NOVOLOG *MODERATE* ALGORITHM WITH MEALS BEDTIME SC Last administered on 10/20/18at 12:21; Admin Dose 4 UNIT; Start 10/20/18 at 08:00 Pantoprazole (Protonix Tab) 40 mg DAILY@06 PO Last administered on 10/20/18at 05: 54; Admin Dose 40 MG; Start 10/20/18 at 06:00 Miscellaneous Information 1 ea NOTE XX ; Start 10/20/18 at 04:00 Glucose (Glutose) 15 gm Q15M PRN PO DECREASED GLUCOSE; Start 10/20/18 at 04:00 Glucose (Glutose) 22.5 gm Q15M PRN PO DECREASED GLUCOSE; Start 10/20/18 at 04:00 Dextrose (D50w Syringe) 25 ml Q15M PRN IV DECREASED GLUCOSE; Start 10/20/18 at 04:00 Dextrose (D50w Syringe) 50 ml Q15M PRN IV DECREASED GLUCOSE; Start 10/20/18 at 04:00 Glucagon (Glucagen) 1 mg Q15M PRN IM DECREASED GLUCOSE; Start 10/20/18 at 04:00 Glucose (Glutose) 15 gm Q15M PRN BUCCAL DECREASED GLUCOSE; Start 10/20/18 at 04:00 Vancomycin HCl 250 ml @ 125 mls/hr Q8H IVPB Last administered on 10/20/18at 05:54; Admin Dose 125 MLS/HR; Start 10/20/18 at 06:00 Miscellaneous Information (*Rx Drug Level Order Reminder*) VANCOMYCIN TROUGH LEVEL 0500 ONCE XX ; Start 10/21/18 at 05:00; Stop 10/21/18 at 05:01 NIVIA EDWARDS NP Oct 20, 2018 14:58
[2018-10-20 20:00] VITALS: BP 164/77; PULSE 95; RESP 18
[2018-10-20 20:30] VITALS: BP 135/71; PULSE 75
[2018-10-21] MEDS: ACCU-CHEK XX SCH (02:06)
[2018-10-21] MEDS: SOD CHLORIDE 0.9% 1,000 ML IV SCH ×3 (02:07→15:39)
[2018-10-21 02:37] VITALS: BP 146/71; PULSE 88; RESP 20
[2018-10-21] MEDS: IBUPROFEN 600 MG TAB PO SCH ×3 (05:42→17:08)
[2018-10-21] MEDS: PANTOPRAZOLE (EC) 40 MG TAB PO SCH (05:42)
[2018-10-21] MEDS: VANCOMYCIN 1 GM 250 ML IVPB SCH ×3 (07:44→23:12)
[2018-10-21 08:00] VITALS: BP 156/76; PULSE 82; RESP 19
[2018-10-21] MEDS: INSULIN GLARGINE [LANTus] (100 UNITS/ML) SYG SC SCH (08:02)
[2018-10-21] MEDS: INSULIN ASPART [NOVOLOG] 3 ML PEN SC SCH ×7 (08:03→21:00)
[2018-10-21] MEDS: metFORMIN 500 MG TAB PO SCH ×2 (08:04→17:09)
[2018-10-21] MEDS: HEPARIN 5,000 UNIT/1 ML VIAL SC SCH ×2 (08:04→21:50)
[2018-10-21] MEDS: CEFEPIME 1GM/50 ML (PMX) 50 ML IVPB SCH ×2 (09:45→21:50)
--- NOTE | 2018-10-21 14:56 | PN ---
Date/Time of Note Date/Time of Note DATE: 10/21/18 TIME: 14:54 Assessment/Plan VTE [place]axis [place] [facility] [place]: 4 SCD applied (from Ns): Yes Pharmacological prophylaxis: NA/contraindicated Pharm contraindication: low risk/ambulating Lines/Catheters IV Catheter Type (from [facility]): Peripheral IV Assessment/Plan Hospital Course 1. Right foot cellulitis -IV antibiotic - ID consult following - antipyretics prn 2. Sepsis, as evidenced by fever, tachycardia and leukocytosis, secondary to #1 - improving -continue abx 3. Type 2 diabetes with hyperglycemia, no DKA -continue insulin. will adjust as needed Dispo/Plan. continue with abx. podiatry consult. continue current tx. Discussed POC with Dr. Christianson Result Diagram: 10/21/1852310/21/18 0524 Results 24hrs Laboratory Tests Test 10/20/18 17:31 10/20/18 20:25 10/21/18 01:59 10/21/18 05:24 Bedside Glucose 193 217 168 White Blood Count 11.1 H Red Blood Count 4.05 L Hemoglobin 12.0 L Hematocrit 35.0 L Mean Corpuscular Volume 86.4 Mean Corpuscular 29.6 Hemoglobin Mean Corpuscular 34.3 Hemoglobin Concent Red Cell Distribution 11.9 Width Platelet Count 266 # Mean Platelet Volume 10.1 Immature Granulocytes % 0.300 Neutrophils % 71.0 Lymphocytes % 18.0 Monocytes % 8.5 Eosinophils % 1.8 Basophils % 0.4 Nucleated Red Blood 0.0 Cells % Immature Granulocytes # 0.030 Neutrophils # 7.9 H Lymphocytes # 2.0 Monocytes # 0.9 Eosinophils # 0.2 Basophils # 0.0 Nucleated Red Blood 0.0 Cells # Sodium Level 142 Potassium Level 3.9 Chloride Level 108 Carbon Dioxide Level 24 Anion Gap 10 Blood Urea Nitrogen 9 Creatinine 0.62 Est Glomerular Filtrat > 60 Rate mL/min Glucose Level 153 # Calcium Level 9.2 Phosphorus Level 3.3 Magnesium Level 1.9 Vancomycin Level Trough 10.9 Test 10/21/18 07:56 10/21/18 12:06 10/21/18 12:07 10/21/18 12:08 Bedside Glucose 170 165 C-Reactive Protein 15.7 H Erythrocyte 109 H Sedimentation Rate Procalcitonin 0.11 H Subjective 24 Hr Interval Summary Free Text/Dictation reports less swelling on RLE Exam/Review of Systems Exam Vitals Vital Signs Date Temp Pulse Resp B/P (MAP) Pulse Ox O2 O2 Flow FiO2 Time Delivery Rate 10/21/18 98.1 82 19 156/76 99 Room Air 08:00 (102) Intake and Output 10/20/18 10/20/18 10/21/18 1515:00 23:00 07:00 IntakeIntake Total 590 ml 1680 ml 720 ml OutputOutput Total 1100 ml 1050 ml 1550 ml BalanceBalance -510 ml 630 ml -830 ml Exam Constitutional: alert, oriented Psych: nl mood/affect Neck: supple, non-tender Respiratory: clear to auscultation Cardiovascular: regular rate and rhythm Gastrointestinal: soft Musculoskeletal: swelling (right foot with erythema ) Neurological: [employer] II-XII intact, nl mental status, nl speech Results Results 24hrs Laboratory Tests Test 10/20/18 17:31 10/20/18 20:25 10/21/18 01:59 10/21/18 05:24 Bedside Glucose 193 217 168 White Blood Count 11.1 H Red Blood Count 4.05 L Hemoglobin 12.0 L Hematocrit 35.0 L Mean Corpuscular Volume 86.4 Mean Corpuscular 29.6 Hemoglobin Mean Corpuscular 34.3 Hemoglobin Concent Red Cell Distribution 11.9 Width Platelet Count 266 # Mean Platelet Volume 10.1 Immature Granulocytes % 0.300 Neutrophils % 71.0 Lymphocytes % 18.0 Monocytes % 8.5 Eosinophils % 1.8 Basophils % 0.4 Nucleated Red Blood 0.0 Cells % Immature Granulocytes # 0.030 Neutrophils # 7.9 H Lymphocytes # 2.0 Monocytes # 0.9 Eosinophils # 0.2 Basophils # 0.0 Nucleated Red Blood 0.0 Cells # Sodium Level 142 Potassium Level 3.9 Chloride Level 108 Carbon Dioxide Level 24 Anion Gap 10 Blood Urea Nitrogen 9 Creatinine 0.62 Est Glomerular Filtrat > 60 Rate mL/min Glucose Level 153 # Calcium Level 9.2 Phosphorus Level 3.3 Magnesium Level 1.9 Vancomycin Level Trough 10.9 Test 10/21/18 07:56 10/21/18 12:06 10/21/18 12:07 10/21/18 12:08 Bedside Glucose 170 165 C-Reactive Protein 15.7 H Erythrocyte 109 H Sedimentation Rate Procalcitonin 0.11 H Medications Medication Current Medications Sodium Chloride 1,000 ml @ 125 mls/hr Q8H IV Last administered on 10/20/18at 20:36; Admin Dose 125 MLS/HR; Start 10/20/18 at 03:26 IV Flush (NS 3 ml) 3 ml PER PROTOCOL IV ; Start 10/20/18 at 03:30 Ondansetron HCl (Zofran Inj) 4 mg Q6H PRN IV NAUSEA/VOMITING; Start 10/20/18 at 03:30 Acetaminophen (Tylenol Tab) 650 mg Q6H PRN PO .PAIN 1-3 OR TEMP; Start 10/20/18 at 03:30 Heparin Sodium (Porcine) (Heparin (5000 Units/1ml)) 5,000 unit Q12 SC Last administered on 10/21/18at 08:04; Admin Dose 5,000 UNIT; Start 10/20/18 at 09:00 Albuterol/ Ipratropium (Duoneb) 3 ml Q2H RESP THERAPY PRN HHN SHORTNESS OF BREATH; Start 10/20/18 at 03:30 Ibuprofen (Motrin) 600 mg Q6 PO Last administered on 10/21/18at 12:09; Admin Dose 600 MG; Start 10/20/18 at 06:00 Promethazine HCl/ Codeine (Phenergan/ Codeine) 10 ml Q6H PRN PO COUGH; Start 10/20/18 at 03:30 Metformin HCl (Glucophage) 1,000 mg BID WITH MEALS PO Last administered on 10/21/18at 08:04; Admin Dose 1,000 MG; Start 10/20/18 at 08:00 Vancomycin HCl (Vanco Iv Per Pharmacy) VANCOMYCIN PER PHARMACY PER PROTOCOL XX ; Start 10/20/18 at 09:00 Cefepime HCl 50 ml @ 100 mls/hr Q12 IVPB Last administered on 10/21/18at 09:45; Admin Dose 100 MLS/HR; Start 10/20/18 at 09:00 Diagnostic Test (Pha) (Accu-Chek) 1 ea 02 XX Last administered on 10/21/18at 02:06; Admin Dose 1 EA; Start 10/21/18 at 02:00 Insulin Glargine (Lantus) 14 units DAILY@0800 SC Last administered on 10/21/18 08:02; Admin Dose 14 UNITS; Start 10/20/18 at 08:00 Insulin Aspart (Novolog Insulin Pen) 6 unit WITH MEALS SC Last administered on 10/21/18at 12:11; Admin Dose 6 UNIT; Start 10/20/18 at 07:35 Insulin Aspart (Novolog Insulin Pen) NOVOLOG *MODERATE* ALGORITHM WITH MEALS BEDTIME SC Last administered on 10/21/18at 12:12; Admin Dose 2 UNIT; Start 10/20/18 at 08:00 Pantoprazole (Protonix Tab) 40 mg DAILY@06 PO Last administered on 10/21/18at 05:42; Admin Dose 40 MG; Start 10/20/18 at 06:00 Miscellaneous Information 1 ea NOTE XX ; Start 10/20/18 at 04:00 Glucose (Glutose) 15 gm Q15M PRN PO DECREASED GLUCOSE; Start 10/20/18 at 04:00 Glucose (Glutose) 22.5 gm Q15M PRN PO DECREASED GLUCOSE; Start 10/20/18 at 04:00 Dextrose (D50w Syringe) 25 ml Q15M PRN IV DECREASED GLUCOSE; Start 10/20/18 at 04:00 Dextrose (D50w Syringe) 50 ml Q15M PRN IV DECREASED GLUCOSE; Start 10/20/18 at 04:00 Glucagon (Glucagen) 1 mg Q15M PRN IM DECREASED GLUCOSE; Start 10/20/18 at 04:00 Glucose (Glutose) 15 gm Q15M PRN BUCCAL DECREASED GLUCOSE; Start 10/20/18 at 04:00 Vancomycin HCl 250 ml @ 125 mls/hr Q8H IVPB Last administered on 10/21/18at 07:44; Admin Dose 125 MLS/HR; Start 10/20/18 at 06:00 NIVIA EDWARDS NP Oct 21, 2018 14:56
[2018-10-21 15:58] VITALS: BP 154/75; PULSE 90; RESP 19
[2018-10-21] MEDS ORDERED: hydrALAzine 20 MG INJ IV PRN (16:30)
--- NOTE | 2018-10-21 19:30 | CONS ---
Assessment/Plan Assessment/Plan Hospital Course (Demo Recall) ID PROGRESS NOTE CURRENT ABX: DAY # =>Vanco IV + Cefepime 10/21/1824 10/21/18 0524 24H INTERVAL SUMMARY * Fevers resolved, WBC down, B/P HTN -- ambulatory in room * (+)Neuropathy -- Right foot w/area of small abscess open ulcer not currently draining -- likely needs excisional debridement to release pus MICRO * 10/20/18 BCX (-); Urine Cx (-) DIAGNOSTIC IMAGING * 10/21/18 MRI ANKLE: 1. No evidence for osteomyelitis.2. Diffuse subcutaneous edema/cellulitic change about the hind foot without evidence of a drainable abscess. 3. 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 * 10/21/18 MRI FOOT: 1. Dorsal skin ulceration at the level of the second metatarsal phalangeal joint with a small amount of underlying subcutaneous phlegmon/developing abscess. The exact margins are difficult to determine without IV contrast.2. No evidence for osteomyelitis at this time. 3. Cellulitic changes about the forefoot. * 10/21/18 ARTERIAL DUPLEX: Decreased BAILEY bilaterally. Focal area of severe stenosis in the right dorsalis pedis. * 10/20/18 CXR: 1. No acute pulmonary disease. 2. Left lower lobe scar or chronic discoid atelectasis. PHYSICAL EXAMINATION: GENERAL: VSS, NAD HEENT: AT, NC, NECK: Supple, CHEST: Equal chest rise bilaterally without dyspnea on observation HEART: Pulse RRR ABDOMEN: Benign EXTREMITIES: Warm, dry -> right foot DSG C/D/I SKIN: No rash, no diaphoresis ID ASSESSMENT 43 yo M admit with: 1. Clinical sepsis on admission w/(+)Fevers, Tachycardia, Leukocytosis due to #2 2. Acute RIGHT FOOT/ANKLE CELLULITIS * (+) Dorsal skin ulceration at the level of the second metatarsal phalangeal joint with a small amount of underlying subcutaneous phlegmon/developing abscess. * (-)Osteomyelitis per MRI 3. 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 4. Peripheral arterial disease * 10/21/18 ARTERIAL DUPLEX: Decreased BAILEY bilaterally. Focal area of severe stenosis in the right dorsalis pedis. 5. Hx of Bronchitis 6. HTN ABX ALLERGIES: KNDA INVASIVES: PIV CURRENT ABX: DAY # =>Vanco IV + Cefepime ID RECOMMENDATIONS/PLAN: 1. Continue current ABX 2. Right foot w/area of small abscess open ulcer not currently draining -- likely needs excisional debridement to release pus . Consultation Date/Type/Reason Admit Date/Time Oct 20, 2018 at 00:52 Initial Consult Date Date/Time of Note DATE: 10/21/18 TIME: 19:17 Exam/Review of Systems Exam Vitals Vital Signs Date Temp Pulse Resp B/P (MAP) Pulse Ox O2 O2 Flow FiO2 Time Delivery Rate 10/21/18 99.1 90 19 154/75 99 Room Air 15:58 (101) Intake and Output 10/20/18 10/20/18 10/21/18 1515:00 23:00 07:00 IntakeIntake Total 590 ml 1680 ml 720 ml OutputOutput Total 1100 ml 1050 ml 1550 ml BalanceBalance -510 ml 630 ml -830 ml Results Result Diagram: 10/21/1824 10/21/18 0524 Results 24hrs Laboratory Tests Test 10/20/18 20:25 10/21/18 01:59 10/21/18 05:24 10/21/18 07:56 Bedside Glucose 217 168 170 White Blood Count 11.1 H Red Blood Count 4.05 L Hemoglobin 12.0 L Hematocrit 35.0 L Mean Corpuscular Volume 86.4 Mean Corpuscular 29.6 Hemoglobin Mean Corpuscular 34.3 Hemoglobin Concent Red Cell Distribution 11.9 Width Platelet Count 266 # Mean Platelet Volume 10.1 Immature Granulocytes % 0.300 Neutrophils % 71.0 Lymphocytes % 18.0 Monocytes % 8.5 Eosinophils % 1.8 Basophils % 0.4 Nucleated Red Blood 0.0 Cells % Immature Granulocytes # 0.030 Neutrophils # 7.9 H Lymphocytes # 2.0 Monocytes # 0.9 Eosinophils # 0.2 Basophils # 0.0 Nucleated Red Blood 0.0 Cells # Sodium Level 142 Potassium Level 3.9 Chloride Level 108 Carbon Dioxide Level 24 Anion Gap 10 Blood Urea Nitrogen 9 Creatinine 0.62 Est Glomerular Filtrat > 60 Rate mL/min Glucose Level 153 # Calcium Level 9.2 Phosphorus Level 3.3 Magnesium Level 1.9 Vancomycin Level Trough 10.9 Test 10/21/18 12:06 10/21/18 12:07 10/21/18 12:08 10/21/18 17:08 C-Reactive Protein 15.7 H Erythrocyte 109 H Sedimentation Rate Procalcitonin 0.11 H Bedside Glucose 165 154 Medications Medication Current Medications Sodium Chloride 1,000 ml @ 125 mls/hr Q8H IV Last administered on 10/21/18at 15:39; Admin Dose 125 MLS/HR; Start 10/20/18 at 03:26 IV Flush (NS 3 ml) 3 ml PER PROTOCOL IV ; Start 10/20/18 at 03:30 Ondansetron HCl (Zofran Inj) 4 mg Q6H PRN IV NAUSEA/VOMITING; Start 10/20/18 at 03:30 Acetaminophen (Tylenol Tab) 650 mg Q6H PRN PO .PAIN 1-3 OR TEMP; Start 10/20/18 at 03:30 Heparin Sodium (Porcine) (Heparin (5000 Units/1ml)) 5,000 unit Q12 SC Last administered on 10/21/18at 08:04; Admin Dose 5,000 UNIT; Start 10/20/18 at 09:00 Albuterol/ Ipratropium (Duoneb) 3 ml Q2H RESP THERAPY PRN HHN SHORTNESS OF BREATH; Start 10/20/18 at 03:30 Ibuprofen (Motrin) 600 mg Q6 PO Last administered on 10/21/18at 17:08; Admin Dose 600 MG; Start 10/20/18 at 06:00 Promethazine HCl/ Codeine (Phenergan/ Codeine) 10 ml Q6H PRN PO COUGH; Start 10/20/18 at 03:30 Metformin HCl (Glucophage) 1,000 mg BID WITH MEALS PO Last administered on 10/21/18at 17:09; Admin Dose 1,000 MG; Start 10/20/18 at 08:00 Vancomycin HCl (Vanco Iv Per Pharmacy) VANCOMYCIN PER PHARMACY PER PROTOCOL XX ; Start 10/20/18 at 09:00 Cefepime HCl 50 ml @ 100 mls/hr Q12 IVPB Last administered on 10/21/18at 09:45; Admin Dose 100 MLS/HR; Start 10/20/18 at 09:00 Diagnostic Test (Pha) (Accu-Chek) 1 ea 02 XX Last administered on 10/21/18at 02:06; Admin Dose 1 EA; Start 10/21/18 at 02:00 Insulin Glargine (Lantus) 14 units DAILY@0800 SC Last administered on 10/21/18at 08:02; Admin Dose 14 UNITS; Start 10/20/18 at 08:00 Insulin Aspart (Novolog Insulin Pen) 6 unit WITH MEALS SC Last administered on 10/21/18at 17:10; Admin Dose 6 UNIT; Start 10/20/18 at 07:35 Insulin Aspart (Novolog Insulin Pen) NOVOLOG *MODERATE* ALGORITHM WITH MEALS BEDTIME SC Last administered on 10/21/18at 17:10; Admin Dose 2 UNIT; Start 10/20/18 at 08:00 Pantoprazole (Protonix Tab) 40 mg DAILY@06 PO Last administered on 10/21/18at 05:42; Admin Dose 40 MG; Start 10/20/18 at 06:00 Miscellaneous Information 1 ea NOTE XX ; Start 10/20/18 at 04:00 Glucose (Glutose) 15 gm Q15M PRN PO DECREASED GLUCOSE; Start 10/20/18 at 04:00 Glucose (Glutose) 22.5 gm Q15M PRN PO DECREASED GLUCOSE; Start 10/20/18 at 04:00 Dextrose (D50w Syringe) 25 ml Q15M PRN IV DECREASED GLUCOSE; Start 10/20/18 at 04:00 Dextrose (D50w Syringe) 50 ml Q15M PRN IV DECREASED GLUCOSE; Start 10/20/18 at 04:00 Glucagon (Glucagen) 1 mg Q15M PRN IM DECREASED GLUCOSE; Start 10/20/18 at 04:00 Glucose (Glutose) 15 gm Q15M PRN BUCCAL DECREASED GLUCOSE; Start 10/20/18 at 04:00 Vancomycin HCl 250 ml @ 125 mls/hr Q8H IVPB Last administered on 10/21/18at 15:39; Admin Dose 125 MLS/HR; Start 10/20/18 at 06:00 Hydralazine HCl (Apresoline) 10 mg Q4H PRN IV ELEVATED BLOOD PRESSURE; Start 10/21/18 at 16:30 MARIANA VINES NP Oct 21, 2018 19:29
[2018-10-21 20:11] VITALS: BP 173/82; PULSE 100; RESP 20
[2018-10-22] MEDS: IBUPROFEN 600 MG TAB PO SCH ×4 (00:40→18:01)
[2018-10-22] MEDS: ACCU-CHEK XX SCH (02:00)
[2018-10-22 02:38] VITALS: BP 142/70; PULSE 86; RESP 18
[2018-10-22] MEDS: PANTOPRAZOLE (EC) 40 MG TAB PO SCH (05:44)
[2018-10-22] MEDS: VANCOMYCIN 1 GM 250 ML IVPB SCH ×3 (05:44→22:04)
[2018-10-22] MEDS: SOD CHLORIDE 0.9% 1,000 ML IV SCH ×3 (05:50→21:05)
[2018-10-22] MEDS: INSULIN ASPART [NOVOLOG] 3 ML PEN SC SCH ×7 (07:54→20:57)
[2018-10-22 08:00] VITALS: BP 159/85; PULSE 83; RESP 20
[2018-10-22] MEDS: metFORMIN 500 MG TAB PO SCH ×2 (08:29→17:20)
[2018-10-22] MEDS: CEFEPIME 1GM/50 ML (PMX) 50 ML IVPB SCH ×2 (08:29→20:54)
[2018-10-22] MEDS: INSULIN GLARGINE [LANTus] (100 UNITS/ML) SYG SC SCH (08:31)
[2018-10-22] MEDS: HEPARIN 5,000 UNIT/1 ML VIAL SC SCH ×2 (08:32→20:58)
[2018-10-22] MEDS: DAKINS 0.0125%(1/40) 473 ML SOLUTION TP SCH (12:34)
[2018-10-22 14:00] VITALS: BP 158/80; PULSE 100; RESP 20
--- NOTE | 2018-10-22 17:35 | CONS ---
Assessment/Plan Assessment/Plan Hospital Course (Demo Recall) ID PROGRESS NOTE CURRENT ABX: DAY # =>Vanco IV + Cefepime 24H INTERVAL SUMMARY * Doing well on current ABX -- afebrile, VSS, WBC down -- awaiting micro results -- pain is manageable * (+)Neuropathy -- Right foot w/area of small abscess open ulcer not currently draining -- likely needs excisional debridement to release pus MICRO * 10/21/18 Foot Dorsal Ulcer Cx GRAM STAIN Final EPITHELIAL CELLS 1+ GRAM POS COCCI IN PAIRS 1+ WOUND CULTURE Preliminary NO GROWTH AFTER 1 DAY * 10/20/18 BCX (-); Urine Cx (-) DIAGNOSTIC IMAGING * 10/21/18 MRI ANKLE: 1. No evidence for osteomyelitis.2. Diffuse subcutaneous edema/cellulitic change about the hind foot without evidence of a drainable abscess. 3. 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 * 10/21/18 MRI FOOT: 1. Dorsal skin ulceration at the level of the second metatarsal phalangeal joint with a small amount of underlying subcutaneous phlegmon/developing abscess. The exact margins are difficult to determine without IV contrast.2. No evidence for osteomyelitis at this time. 3. Cellulitic changes about the forefoot. * 10/21/18 ARTERIAL DUPLEX: Decreased BAILEY bilaterally. Focal area of severe stenosis in the right dorsalis pedis. * 10/20/18 CXR: 1. No acute pulmonary disease. 2. Left lower lobe scar or chronic discoid atelectasis. PHYSICAL EXAMINATION: GENERAL: VSS, NAD HEENT: AT, NC, NECK: Supple, CHEST: Equal chest rise bilaterally without dyspnea on observation HEART: Pulse RRR ABDOMEN: Benign EXTREMITIES: Warm, dry -> right foot DSG C/D/I SKIN: No rash, no diaphoresis ID ASSESSMENT 43 yo M admit with: 1. Clinical sepsis on admission w/(+)Fevers, Tachycardia, Leukocytosis due to #2 2. Acute RIGHT FOOT/ANKLE CELLULITIS * (+) Dorsal skin ulceration at the level of the second metatarsal phalangeal joint with a small amount of underlying subcutaneous phlegmon/developing abscess. * (-)Osteomyelitis per MRI 3. 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 4. Peripheral arterial disease * 10/21/18 ARTERIAL DUPLEX: Decreased BAILEY bilaterally. Focal area of severe stenosis in the right dorsalis pedis. 5. Hx of Bronchitis 6. HTN ABX ALLERGIES: KNDA INVASIVES: PIV CURRENT ABX: DAY # =>Vanco IV + Cefepime ID RECOMMENDATIONS/PLAN: 1. Continue current ABX -- Awaiting micro results 2. Right foot w/area of small abscess open ulcer not currently draining -- likely needs excisional debridement to release pus . Consultation Date/Type/Reason Admit Date/Time Oct 20, 2018 at 00:52 Initial Consult Date Date/Time of Note DATE: 10/22/18 TIME: 17:33 Exam/Review of Systems Exam Vitals Vital Signs Date Temp Pulse Resp B/P (MAP) Pulse Ox O2 O2 Flow FiO2 Time Delivery Rate 10/22/18 98.8 100 20 158/80 96 14:00 (106) 10/21/18 Room Air 15:58 Intake and Output 10/21/18 10/21/18 10/22/18 1515:00 23:00 07:00 IntakeIntake Total 1220 ml 1600 ml 2525 ml OutputOutput Total 1100 ml 400 ml 900 ml BalanceBalance 120 ml 1200 ml 1625 ml Results Result Diagram: 10/21/18 0524 10/21/18 0524 Results 24hrs Laboratory Tests Test 10/21/18 21:46 10/22/18 07:52 10/22/18 11:37 10/22/18 17:07 Bedside Glucose 151 124 165 123 Medications Medication Current Medications Sodium Chloride 1,000 ml @ 125 mls/hr Q8H IV Last administered on 10/22/18at 05:50; Admin Dose 125 MLS/HR; Start 10/20/18 at 03:26 IV Flush (NS 3 ml) 3 ml PER PROTOCOL IV ; Start 10/20/18 at 03:30 Ondansetron HCl (Zofran Inj) 4 mg Q6H PRN IV NAUSEA/VOMITING; Start 10/20/18 at 03:30 Acetaminophen (Tylenol Tab) 650 mg Q6H PRN PO .PAIN 1-3 OR TEMP; Start 10/20/18 at 03:30 Heparin Sodium (Porcine) (Heparin (5000 Units/1ml)) 5,000 unit Q12 SC Last administered on 10/22/18 08:32; Admin Dose 5,000 UNIT; Start 10/20/18 at 09:00 Albuterol/ Ipratropium (Duoneb) 3 ml Q2H RESP THERAPY PRN HHN SHORTNESS OF BREATH; Start 10/20/18 at 03:30 Ibuprofen (Motrin) 600 mg Q6 PO Last administered on 10/22/18 12:34; Admin Dose 600 MG; Start 10/20/18 at 06:00 Promethazine HCl/ Codeine (Phenergan/ Codeine) 10 ml Q6H PRN PO COUGH; Start 10/20/18 at 03:30 Metformin HCl (Glucophage) 1,000 mg BID WITH MEALS PO Last administered on 10/22/18 17:20; Admin Dose 1,000 MG; Start 10/20/18 at 08:00 Vancomycin HCl (Vanco Iv Per Pharmacy) VANCOMYCIN PER PHARMACY PER PROTOCOL XX ; Start 10/20/18 at 09:00 Cefepime HCl 50 ml @ 100 mls/hr Q12 IVPB Last administered on 10/22/18 08:29; Admin Dose 100 MLS/HR; Start 10/20/18 at 09:00 Diagnostic Test (Pha) (Accu-Chek) 1 ea 02 XX Last administered on 10/21/18 02:06; Admin Dose 1 EA; Start 10/21/18 at 02:00 Insulin Glargine (Lantus) 14 units DAILY@0800 SC Last administered on 10/22/18 08:31; Admin Dose 14 UNITS; Start 10/20/18 at 08:00 Insulin Aspart (Novolog Insulin Pen) 6 unit WITH MEALS SC Last administered on 10/22/18 17:21; Admin Dose 6 UNIT; Start 10/20/18 at 07:35 Insulin Aspart (Novolog Insulin Pen) NOVOLOG *MODERATE* ALGORITHM WITH MEALS BEDTIME SC Last administered on 10/22/18 11:42; Admin Dose 2 UNIT; Start 10/20 at 08:00 Pantoprazole (Protonix Tab) 40 mg DAILY@06 PO Last administered on 10/22/18 05:44; Admin Dose 40 MG; Start 10/20/18 at 06:00 Miscellaneous Information 1 ea NOTE XX ; Start 10/20/18 at 04:00 Glucose (Glutose) 15 gm Q15M PRN PO DECREASED GLUCOSE; Start 10/20/18 at 04:00 Glucose (Glutose) 22.5 gm Q15M PRN PO DECREASED GLUCOSE; Start 10/20/18 at 04:00 Dextrose (D50w Syringe) 25 ml Q15M PRN IV DECREASED GLUCOSE; Start 10/20/18 at 04:00 Dextrose (D50w Syringe) 50 ml Q15M PRN IV DECREASED GLUCOSE; Start 10/20/18 at 04:00 Glucagon (Glucagen) 1 mg Q15M PRN IM DECREASED GLUCOSE; Start 10/20/18 at 04:00 Glucose (Glutose) 15 gm Q15M PRN BUCCAL DECREASED GLUCOSE; Start 10/20/18 at 04:00 Vancomycin HCl 250 ml @ 125 mls/hr Q8H IVPB Last administered on 10/22/18at 13:23; Admin Dose 125 MLS/HR; Start 10/20/18 at 06:00 Hydralazine HCl (Apresoline) 10 mg Q4H PRN IV ELEVATED BLOOD PRESSURE; Start 10/21/18 at 16:30 Sodium Hypochlorite (Dakins Diluted (/40)) 1 applic DAILY TP Last administered on 10/22/18at 12:34; Admin Dose 1 APPLIC; Start 10/22/18 at 12:00 MARIANA VINES NP Oct 22, 2018 17:35
--- NOTE | 2018-10-22 18:35 | CONS ---
DATE OF ADMISSION: 10/20/2018 DATE OF CONSULTATION: 10/22/2018 REASON FOR CONSULTATION: Right foot cellulitis. HISTORY OF PRESENT ILLNESS: This is a 43-year-old gentleman with chronic recurring cellulitis had a prior infection treated with oral antibiotics as an outpatient. The patient relates remotely he had stepped on some nayely. He has multiple comorbidities. PAST MEDICAL HISTORY: Includes diabetes, hypertension, bronchitis. MEDICATIONS: 1. Vancomycin. 2. Zosyn. FAMILY HISTORY: Noncontributory. SOCIAL HISTORY: Denies any tobacco, alcohol, or illicit drug use. PHYSICAL EXAMINATION: VITAL SIGNS: Temperature 98.8, pulse 100, respiratory rate 20, blood pressure 158/80, pulse oximetry is 96% on room air. GENERAL: The patient is alert, oriented, no acute distress. Regular respirations. EXTREMITIES: 2+ DP pulse, 1 to 2+ pitting edema in the right foot and right lower extremity. The se cond metatarsophalangeal joint dorsal aspect an area of fluctuance with a pending abscess with tissue necrosis. Extremities are warm to touch. No signs of pressure sore. No visible signs of plantar p uncture wound. There is no instability of ankle, hindfoot, or midfoot joints. IMAGING: X-rays no acute fracture, dislocation, or evidence of osteomyelitis, soft tissue swelling w ithout soft tissue gas, mild retrocalcaneal enthesiopathy changes. Mild narrowing of the first metat arsophalangeal joint just articular erosion of the 1st metatarsal head, atherosclerosis. MRI reveals a dorsal skin ulceration at the level of second metatarsophalangeal joint, small amount of subcutane ous phlegmon developing abscess. No evidence of osteomyelitis. Ankle MRI, no evidence of osteomyeli tis. No abscess of the hindfoot or ankle. Arterial ultrasound right lower extremity right BAILEY of 0. 85. LABORATORIES: WBC 11.5, trending down from 14.6, hemoglobin 12, hematocrit 35, platelets 266. Sed r ate is 109. Glucose 165. Wound cultures positive for staph. ASSESSMENT: 1. Right foot cellulitis. 2. Right foot abscess second metatarsophalangeal location. 3. Diabetes with peripheral neuropathy. 4. History of bronchitis. PLAN: The patient seen and evaluated, reviewed labs and imaging studies. The foot was pressed and a bscess spontaneously ruptured and fluid drained. Estimated 1 to 2 mL of purulence. Area was irrigat ed with Betadine and packed open. We will followup on definitive culture results. The patient seen by ID, currently on vancomycin and cefepime. If clinically improved, no further surgical interventio n. Dictated By: NICOLAS NOVAK DPM RB/BETTY Conf#: [id number] DID#: [id number] CC: RHONDA PERALTA MD;*EndCC*
--- NOTE | 2018-10-22 20:08 | PN ---
Date/Time of Note Date/Time of Note DATE: 10/22/18 TIME: 20:03 Assessment/Plan VTE Prophylaxis Risk score (from Ns)>0 risk: 3 SCD applied (from Ns): Yes Pharmacological prophylaxis: heparin Lines/Catheters IV Catheter Type (from Nrs): Peripheral IV Assessment/Plan Hospital Course 1. Right foot cellulitis -IV antibiotic - ID consult following - antipyretics prn -podiatry following 2. Sepsis, as evidenced by fever, tachycardia and leukocytosis, secondary to #1 - improving -continue abx 3. Type 2 diabetes with hyperglycemia, no DKA -continue insulin. will adjust as needed Dispo/Plan. continue with abx. podiatry following. Wound was pressed with rupture/drainage. continue wound care. monitor for improvement Discussed POC with Dr. Christianson Result Diagram: 10/22/18 1751 10/21/18 0524 Results 24hrs Laboratory Tests Test 10/21/18 21:46 10/22/18 07:52 10/22/18 11:37 10/22/18 17:07 Bedside Glucose 151 124 165 123 Test 10/22/18 17:51 White Blood Count 9.7 Red Blood Count 3.67 L Hemoglobin 10.8 L Hematocrit 31.5 L Mean Corpuscular Volume 85.8 Mean Corpuscular 29.4 Hemoglobin Mean Corpuscular 34.3 Hemoglobin Concent Red Cell Distribution 11.8 Width Platelet Count 292 Mean Platelet Volume 9.5 Immature Granulocytes % 0.400 Neutrophils % 80.3 H Lymphocytes % 11.2 L Monocytes % 6.3 Eosinophils % 1.5 Basophils % 0.3 Nucleated Red Blood 0.0 Cells % Immature Granulocytes # 0.040 H Neutrophils # 7.8 H Lymphocytes # 1.1 Monocytes # 0.6 Eosinophils # 0.2 Basophils # 0.0 Nucleated Red Blood 0.0 Cells # Erythrocyte 90 H Sedimentation Rate C-Reactive Protein 7.4 H Subjective 24 Hr Interval Summary Free Text/Dictation reports pain on right foot but less. was at bedside during interview Exam/Review of Systems Exam Vitals Vital Signs Date Temp Pulse Resp B/P (MAP) Pulse Ox O2 O2 Flow FiO2 Time Delivery Rate 10/22/18 98.8 100 20 158/80 96 14:00 (106) 10/21/18 Room Air 15:58 Intake and Output 10/21/18 10/21/18 10/22/18 1515:00 23:00 07:00 IntakeIntake Total 1220 ml 1600 ml 2525 ml OutputOutput Total 1100 ml 400 ml 900 ml BalanceBalance 120 ml 1200 ml 1625 ml Exam Constitutional: alert, oriented Psych: nl mood/affect Neck: supple, non-tender Respiratory: clear to auscultation Cardiovascular: regular rate and rhythm Gastrointestinal: soft Musculoskeletal: swelling (right foot with erythema ) Neurological: [employer] II-XII intact, nl mental status, nl speech Results Results 24hrs Laboratory Tests Test 10/21/18 21:46 10/22/18 07:52 10/22/18 11:37 10/22/18 17:07 Bedside Glucose 151 124 165 123 Test 10/22/18 17:51 White Blood Count 9.7 Red Blood Count 3.67 L Hemoglobin 10.8 L Hematocrit 31.5 L Mean Corpuscular Volume 85.8 Mean Corpuscular 29.4 Hemoglobin Mean Corpuscular 34.3 Hemoglobin Concent Red Cell Distribution 11.8 Width Platelet Count 292 Mean Platelet Volume 9.5 Immature Granulocytes % 0.400 Neutrophils % 80.3 H Lymphocytes % 11.2 L Monocytes % 6.3 Eosinophils % 1.5 Basophils % 0.3 Nucleated Red Blood 0.0 Cells % Immature Granulocytes # 0.040 H Neutrophils # 7.8 H Lymphocytes # 1.1 Monocytes # 0.6 Eosinophils # 0.2 Basophils # 0.0 Nucleated Red Blood 0.0 Cells # Erythrocyte 90 H Sedimentation Rate C-Reactive Protein 7.4 H Medications Medication Current Medications Sodium Chloride 1,000 ml @ 125 mls/hr Q8H IV Last administered on 10/22/18at 05:50; Admin Dose 125 MLS/HR; Start 10/20/18 at 03:26 IV Flush (NS 3 ml) 3 ml PER PROTOCOL IV ; Start 10/20/18 at 03:30 Ondansetron HCl (Zofran Inj) 4 mg Q6H PRN IV NAUSEA/VOMITING; Start 10/20/18 at 03:30 Acetaminophen (Tylenol Tab) 650 mg Q6H PRN PO .PAIN 1-3 OR TEMP; Start 10/20/18 at 03:30 Heparin Sodium (Porcine) (Heparin (5000 Units/1ml)) 5,000 unit Q12 SC Last administered on 10/22/18at 08:32; Admin Dose 5,000 UNIT; Start 10/20/18 at 09:00 Albuterol/ Ipratropium (Duoneb) 3 ml Q2H RESP THERAPY PRN HHN SHORTNESS OF BREATH; Start 10/20/18 at 03:30 Ibuprofen (Motrin) 600 mg Q6 PO Last administered on 10/22/18 18:01; Admin Dose 600 MG; Start 10/20/18 at 06:00 Promethazine HCl/ Codeine (Phenergan/ Codeine) 10 ml Q6H PRN PO COUGH; Start 10/20/18 at 03:30 Metformin HCl (Glucophage) 1,000 mg BID WITH MEALS PO Last administered on 10/22/18 17:20; Admin Dose 1,000 MG; Start 10/20/18 at 08:00 Vancomycin HCl (Vanco Iv Per Pharmacy) VANCOMYCIN PER PHARMACY PER PROTOCOL XX ; Start 10/20/18 at 09:00 Cefepime HCl 50 ml @ 100 mls/hr Q12 IVPB Last administered on 10/22/18 08:29; Admin Dose 100 MLS/HR; Start 10/20/18 at 09:00 Diagnostic Test (Pha) (Accu-Chek) 1 ea 02 XX Last administered on 10/21/18 02:06; Admin Dose 1 EA; Start 10/21/18 at 02:00 Insulin Glargine (Lantus) 14 units DAILY@0800 SC Last administered on 10/22/18 08:31; Admin Dose 14 UNITS; Start 10/20/18 at 08:00 Insulin Aspart (Novolog Insulin Pen) 6 unit WITH MEALS SC Last administered on 10/22/18 17:21; Admin Dose 6 UNIT; Start 10/20/18 at 07:35 Insulin Aspart (Novolog Insulin Pen) NOVOLOG *MODERATE* ALGORITHM WITH MEALS BEDTIME SC Last administered on 10/22/18 11:42; Admin Dose 2 UNIT; Start 10/20/18 at 08:00 Pantoprazole (Protonix Tab) 40 mg DAILY@06 PO Last administered on 10/22/18 05 :44; Admin Dose 40 MG; Start 10/20/18 at 06:00 Miscellaneous Information 1 ea NOTE XX ; Start 10/20/18 at 04:00 Glucose (Glutose) 15 gm Q15M PRN PO DECREASED GLUCOSE; Start 10/20/18 at 04:00 Glucose (Glutose) 22.5 gm Q15M PRN PO DECREASED GLUCOSE; Start 10/20/18 at 04:00 Dextrose (D50w Syringe) 25 ml Q15M PRN IV DECREASED GLUCOSE; Start 10/20/18 at 04:00 Dextrose (D50w Syringe) 50 ml Q15M PRN IV DECREASED GLUCOSE; Start 10/20/18 at 04:00 Glucagon (Glucagen) 1 mg Q15M PRN IM DECREASED GLUCOSE; Start 10/20/18 at 04:00 Glucose (Glutose) 15 gm Q15M PRN BUCCAL DECREASED GLUCOSE; Start 10/20/18 at 04: 00 Vancomycin HCl 250 ml @ 125 mls/hr Q8H IVPB Last administered on 10/22/18at 13:23; Admin Dose 125 MLS/HR; Start 10/20/18 at 06:00 Hydralazine HCl (Apresoline) 10 mg Q4H PRN IV ELEVATED BLOOD PRESSURE; Start 10/21/18 at 16:30 Sodium Hypochlorite (Dakins Diluted ()) 1 applic DAILY TP Last administered on 10/22/18at 12:34; Admin Dose 1 APPLIC; Start 10/22/18 at 12:00 NIVIA EDWARDS NP Oct 22, 2018 20:08
[2018-10-22 20:35] VITALS: BP 161/85; PULSE 93; RESP 18
[2018-10-22 20:44] VITALS: BP 153/76; PULSE 86
[2018-10-23] MEDS: IBUPROFEN 600 MG TAB PO SCH ×4 (00:13→17:41)
[2018-10-23] MEDS: ACCU-CHEK XX SCH (02:00)
[2018-10-23 03:10] VITALS: BP 159/82; PULSE 94; RESP 20
[2018-10-23] MEDS: SOD CHLORIDE 0.9% 1,000 ML IV SCH ×2 (04:06→12:00)
[2018-10-23] MEDS: VANCOMYCIN 1 GM 250 ML IVPB SCH ×3 (05:35→22:30)
[2018-10-23] MEDS: PANTOPRAZOLE (EC) 40 MG TAB PO SCH (05:35)
[2018-10-23] MEDS: INSULIN ASPART [NOVOLOG] 3 ML PEN SC SCH ×7 (08:00→21:00)
[2018-10-23] MEDS: INSULIN GLARGINE [LANTus] (100 UNITS/ML) SYG SC SCH (08:16)
[2018-10-23] MEDS: HEPARIN 5,000 UNIT/1 ML VIAL SC SCH ×2 (08:16→21:39)
--- NOTE | 2018-10-23 08:18 | CONS ---
DATE OF ADMISSION: 10/20/2018 DATE OF CONSULTATION: 10/23/2018 REFERRING PHYSICIAN: Dr. Nicolas Novak. REASON FOR CONSULTATION: Evaluate circulation with right foot ulcer. HISTORY OF PRESENT ILLNESS: This is a 43-year-old diabetic who was admitted with an abscess in the r ight foot. It was drained. He says that he stepped on maybe a staple and it became infected. He had an arterial duplex done several days ago that shows essentially normal flow all the way down, some m ild abnormalities in the distal tibial vessels. PAST MEDICAL HISTORY: Significant for hypertension, diabetes and right foot abscess. MEDICATIONS: Consist of: 1. Hydralazine. 2. Subcutaneous heparin. 3. Vancomycin. 4. Cefepime. 5. Metformin. 6. Insulin. 7. Ibuprofen. 8. Albuterol. ALLERGIES: THERE ARE NO KNOWN DRUG ALLERGIES. SOCIAL HISTORY: He is a nonsmoker. He does not drink or use any illicit drugs. FAMILY HISTORY: Noncontributory. REVIEW OF SYSTEMS: He currently has no complaints. He has no chest pain or shortness of breath, no nausea, vomiting, diarrhea. No fever, no chills, no recent weight gain or weight loss. PHYSICAL EXAMINATION GENERAL: He is a middle-aged gentleman in no acute distress. VITAL SIGNS: He has been afebrile. His blood pressure is 160/82, respiratory rate is 20. His heart rate is 94. He has 99% sat on room air. NECK: He has 2+ carotid, radial and brachial pulses bilaterally. LUNGS: Clear. HEART: Regular rate and rhythm. ABDOMEN: Soft, nontender, nondistended. EXTREMITIES: 2+ femoral, popliteal, DP and PT pulses bilaterally. The right foot is partially wrapp ed. I can see some packing coming out the dorsal aspect of the foot. I do not see any erythema. Th ere is a little bit of edema in the right leg. He had a normal venous scan as well. LABORATORY DATA: White count today is normal. It came down to normal yesterday. Creatinine has bee n normal throughout. IMPRESSION: 1. Right foot abscess, diabetic foot ulcer, foot infection. He has normal circulation. I don't see any need for further intervention. He has good palpable pulses and normal looking arterial duplex. I am available if there are any further issues. Dictated By: GRISEL ARREDONDO/BETTY Conf#: [id number] [facility]#: [id number] CC: MARANDA ECHEVARRIA MD; RHONDA PERALTA MD; Corby Gomez; NICOLAS NOVAK DPM;*End*
[2018-10-23] MEDS: CEFEPIME 1GM/50 ML (PMX) 50 ML IVPB SCH ×2 (08:19→21:30)
[2018-10-23] MEDS: DAKINS 0.0125%(1/40) 473 ML SOLUTION TP SCH (08:20)
[2018-10-23] MEDS: metFORMIN 500 MG TAB PO SCH ×2 (08:20→17:41)
[2018-10-23 08:27] VITALS: BP 144/72; PULSE 80; RESP 18
[2018-10-23 14:00] VITALS: BP 146/59; PULSE 85; RESP 19
--- NOTE | 2018-10-23 17:01 | PN ---
Date/Time of Note Date/Time of Note DATE: 10/23/18 TIME: 17:01 Assessment/Plan VTE Prophylaxis Risk score (from Nsg)>0 risk: 3 SCD applied (from Nsg): Yes Pharmacological prophylaxis: heparin Lines/Catheters IV Catheter Type (from Nrsg): Peripheral IV Assessment/Plan Hospital Course SUBJECTIVE: Denies any right foot pain. OBJECTIVE: Physical Exam General: Adequately build 43 year-old male lying in bed in no apparent distress. HEENT: Normocephalic, atraumatic. Eyes: Anicteric sclerae, conjunctivae clear. ENT: Nasal septum midline, oral mucosa moist. Neck supple, no JVD noticed. Respiratory: Bilaterally clear breath sounds. No use of accessory muscles of respiration. No adventitious breath sounds. Cardiovascular: S1, S2 heard. Regular rate and rhythm. Abdomen: Soft, nontender, and nondistended. Bowel sounds positive in all 4 quadrants. Genitourinary: Deferred. Extremities: No cyanosis, no clubbing, no edema. Right foot dressing. Peripheral pulses palpable. Neurologic: Cranial nerves II through XII grossly intact. The patient is awake, alert, and oriented. Skin: Normal skin turgor. No skin rashes. Labs & Vitals per chart ASSESSMENT & PLAN 43-year-old male with comorbidities including diabetes mellitus type 2 who came to the emergency room with chief complaint of pain in the right foot with swelling and redness, who was found to have evidence of underlying right lower extremity cellulitis, and was admitted to inpatient setting for further t reatment and evaluation. 1. Right foot cellulitis. Continue antimicrobials as per ID. Being followed by podiatry. Status post evaluation by vascular surgery who recommended no specific intervention for the arterial Doppler finding. 2. Diabetes mellitus type 2. Hemoglobin A1c 9.2. Continue sliding scale insulin along with pre-meal insulin basal insulin. Continue metformin. 3. Hypertension. Continue antihypertensives. 4. Normocytic anemia. Probably anemia of chronic disease. Monitor H&H closely. 5. Fluids, electrolytes, and nutrition. Carbohydrate controlled diet. 6. DVT prophylaxis. Subcutaneous heparin. 7. Plan. Continue antimicrobials as per ID. Local wound care as per podiatry. Await clinical improvement before discharging the patient home. The patient was seen in collaboration with Dr. Byrnes. Result Diagram: 10/23/1862210/23/18 06 Results 24hrs Laboratory Tests Test 10/22/18 17:07 10/22/18 17:51 10/22/18 20:51 10/23/18 02:12 Bedside Glucose 123 224 H 133 White Blood Count 9.7 Red Blood Count 3.67 L Hemoglobin 10.8 L Hematocrit 31.5 L Mean Corpuscular Volume 85.8 Mean Corpuscular 29.4 Hemoglobin Mean Corpuscular 34.3 Hemoglobin Concent Red Cell Distribution 11.8 Width Platelet Count 292 Mean Platelet Volume 9.5 Immature Granulocytes % 0.400 Neutrophils % 80.3 H Lymphocytes % 11.2 L Monocytes % 6.3 Eosinophils % 1.5 Basophils % 0.3 Nucleated Red Blood 0.0 Cells % Immature Granulocytes # 0.040 H Neutrophils # 7.8 H Lymphocytes # 1.1 Monocytes # 0.6 Eosinophils # 0.2 Basophils # 0.0 Nucleated Red Blood 0.0 Cells # Erythrocyte 90 H Sedimentation Rate C-Reactive Protein 7.4 H Procalcitonin 0.09 Test 10/23/18 06:23 10/23/18 08:02 10/23/18 12:21 White Blood Count 9.2 Red Blood Count 3.62 L Hemoglobin 10.6 L Hematocrit 31.4 L Mean Corpuscular Volume 86.7 Mean Corpuscular 29.3 Hemoglobin Mean Corpuscular 33.8 Hemoglobin Concent Red Cell Distribution 11.8 Width Platelet Count 289 Mean Platelet Volume 9.7 Immature Granulocytes % 0.400 Neutrophils % 69.1 Lymphocytes % 18.4 Monocytes % 9.6 Eosinophils % 2.0 Basophils % 0.5 Nucleated Red Blood 0.0 Cells % Immature Granulocytes # 0.040 H Neutrophils # 6.3 Lymphocytes # 1.7 Monocytes # 0.9 Eosinophils # 0.2 Basophils # 0.1 Nucleated Red Blood 0.0 Cells # Sodium Level 142 Potassium Level 3.9 Chloride Level 106 Carbon Dioxide Level 28 Anion Gap 8 Blood Urea Nitrogen 9 Creatinine 0.60 L Est Glomerular Filtrat > 60 Rate mL/min Glucose Level 131 Calcium Level 9.0 Bedside Glucose 131 149 Exam/Review of Systems Exam Vitals Vital Signs Date Temp Pulse Resp B/P (MAP) Pulse Ox O2 O2 Flow FiO2 Time Delivery Rate 10/23/18 98.6 85 19 146/59 97 14:00 (88) 10/21/18 Room Air 15:58 Intake and Output 10/22/18 10/22/18 10/23/18 1515:00 23:00 07:00 IntakeIntake Total 1025 ml 900 ml 875 ml OutputOutput Total 800 ml 900 ml 600 ml BalanceBalance 225 ml 0 ml 275 ml Results Results 24hrs Laboratory Tests Test 10/22/18 17:07 10/22/18 17:51 10/22/18 20:51 10/23/18 02:12 Bedside Glucose 123 224 H 133 White Blood Count 9.7 Red Blood Count 3.67 L Hemoglobin 10.8 L Hematocrit 31.5 L Mean Corpuscular Volume 85.8 Mean Corpuscular 29.4 Hemoglobin Mean Corpuscular 34.3 Hemoglobin Concent Red Cell Distribution 11.8 Width Platelet Count 292 Mean Platelet Volume 9.5 Immature Granulocytes % 0.400 Neutrophils % 80.3 H Lymphocytes % 11.2 L Monocytes % 6.3 Eosinophils % 1.5 Basophils % 0.3 Nucleated Red Blood 0.0 Cells % Immature Granulocytes # 0.040 H Neutrophils # 7.8 H Lymphocytes # 1.1 Monocytes # 0.6 Eosinophils # 0.2 Basophils # 0.0 Nucleated Red Blood 0.0 Cells # Erythrocyte 90 H Sedimentation Rate C-Reactive Protein 7.4 H Procalcitonin 0.09 Test 10/23/18 06:23 10/23/18 08:02 10/23/18 12:21 White Blood Count 9.2 Red Blood Count 3.62 L Hemoglobin 10.6 L Hematocrit 31.4 L Mean Corpuscular Volume 86.7 Mean Corpuscular 29.3 Hemoglobin Mean Corpuscular 33.8 Hemoglobin Concent Red Cell Distribution 11.8 Width Platelet Count 289 Mean Platelet Volume 9.7 Immature Granulocytes % 0.400 Neutrophils % 69.1 Lymphocytes % 18.4 Monocytes % 9.6 Eosinophils % 2.0 Basophils % 0.5 Nucleated Red Blood 0.0 Cells % Immature Granulocytes # 0.040 H Neutrophils # 6.3 Lymphocytes # 1.7 Monocytes # 0.9 Eosinophils # 0.2 Basophils # 0.1 Nucleated Red Blood 0.0 Cells # Sodium Level 142 Potassium Level 3.9 Chloride Level 106 Carbon Dioxide Level 28 Anion Gap 8 Blood Urea Nitrogen 9 Creatinine 0.60 L Est Glomerular Filtrat > 60 Rate mL/min Glucose Level 131 Calcium Level 9.0 Bedside Glucose 131 149 Medications Medication Current Medications IV Flush (NS 3 ml) 3 ml PER PROTOCOL IV ; Start 10/20/18 at 03:30 Ondansetron HCl (Zofran Inj) 4 mg Q6H PRN IV NAUSEA/VOMITING; Start 10/20/18 at 03:30 Acetaminophen (Tylenol Tab) 650 mg Q6H PRN PO .PAIN 1-3 OR TEMP; Start 10/20/18 at 03:30 Heparin Sodium (Porcine) (Heparin (5000 Units/1ml)) 5,000 unit Q12 SC Last administered on 10/23/18 08:16; Admin Dose 5,000 UNIT; Start 10/20/18 at 09:00 Albuterol/ Ipratropium (Duoneb) 3 ml Q2H RESP THERAPY PRN HHN SHORTNESS OF BREATH; Start 10/20/18 at 03:30 Ibuprofen (Motrin) 600 mg Q6 PO Last administered on 10/23/18 12:28; Admin Dose 600 MG; Start 10/20/18 at 06:00 Promethazine HCl/ Codeine (Phenergan/ Codeine) 10 ml Q6H PRN PO COUGH; Start 10/20/18 at 03:30 Metformin HCl (Glucophage) 1,000 mg BID WITH MEALS PO Last administered on 10/23/18 08:20; Admin Dose 1,000 MG; Start 10/20/18 at 08:00 Vancomycin HCl (Vanco Iv Per Pharmacy) VANCOMYCIN PER PHARMACY PER PROTOCOL XX ; Start 10/20/18 at 09:00 Cefepime HCl 50 ml @ 100 mls/hr Q12 IVPB Last administered on 10/23/18 08:19; Admin Dose 100 MLS/HR; Start 10/20/18 at 09:00 Diagnostic Test (Pha) (Accu-Chek) 1 ea 02 XX Last administered on 10/21/18 02 :06; Admin Dose 1 EA; Start 10/21/18 at 02:00 Insulin Glargine (Lantus) 14 units DAILY@0800 SC Last administered on 10/23/18 08:16; Admin Dose 14 UNITS; Start 10/20/18 at 08:00 Insulin Aspart (Novolog Insulin Pen) 6 unit WITH MEALS SC Last administered on 10/23/18 12:23; Admin Dose 6 UNIT; Start 10/20/18 at 07:35 Insulin Aspart (Novolog Insulin Pen) NOVOLOG *MODERATE* ALGORITHM WITH MEALS BEDTIME SC Last administered on 10/23/18at 12:24; Admin Dose 2 UNIT; Start 10/20/18 at 08:00 Pantoprazole (Protonix Tab) 40 mg DAILY@06 PO Last administered on 10/23/18at 05:35; Admin Dose 40 MG; Start 10/20/18 at 06:00 Miscellaneous Information 1 ea NOTE XX ; Start 10/20/18 at 04:00 Glucose (Glutose) 15 gm Q15M PRN PO DECREASED GLUCOSE; Start 10/20/18 at 04:00 Glucose (Glutose) 22.5 gm Q15M PRN PO DECREASED GLUCOSE; Start 10/20/18 at 04:00 Dextrose (D50w Syringe) 25 ml Q15M PRN IV DECREASED GLUCOSE; Start 10/20/18 at 04:00 Dextrose (D50w Syringe) 50 ml Q15M PRN IV DECREASED GLUCOSE; Start 10/20/18 at 04:00 Glucagon (Glucagen) 1 mg Q15M PRN IM DECREASED GLUCOSE; Start 10/20/18 at 04:00 Glucose (Glutose) 15 gm Q15M PRN BUCCAL DECREASED GLUCOSE; Start 10/20/18 at 04:00 Vancomycin HCl 250 ml @ 125 mls/hr Q8H IVPB Last administered on 10/23/18at 14:41; Admin Dose 125 MLS/HR; Start 10/20/18 at 06:00 Hydralazine HCl (Apresoline) 10 mg Q4H PRN IV ELEVATED BLOOD PRESSURE; Start 10/21/18 at 16:30 Sodium Hypochlorite (Dakins Diluted ()) 1 applic DAILY TP Last administered on 10/23/18at 08:20; Admin Dose 1 APPLIC; Start 10/22/18 at 12:00 Sodium Chloride 1,000 ml @ 125 mls/hr Q8H IV Last administered on 10/23/18at 04:06; Admin Dose 125 MLS/HR; Start 10/23/18 at 04:00 SOLOMON SIMEON NP Oct 23, 2018 17:01
[2018-10-23 20:00] VITALS: BP 161/79; PULSE 81; RESP 17
--- NOTE | 2018-10-23 21:01 | CONS ---
Assessment/Plan Assessment/Plan Hospital Course (Demo Recall) ID PROGRESS NOTE CURRENT ABX: DAY # 3 =>Vanco IV + Cefepime 24H INTERVAL SUMMARY * Doing well on current ABX -- afebrile, VSS, WBC down -- awaiting micro results -- pain is manageable * (+)Neuropathy -- Right foot w/area of small abscess open ulcer not currently draining -- likely needs excisional debridement to release pus MICRO * 10/21/18 Foot Dorsal Ulcer Cx WOUND CULTURE Final Organism 1 COAGULASE NEGATIVE STAPH QUANTITY 2+ COAG NEG M.I.C. RX --------- --- CEFAZOLIN R CIPROFLOXACIN <=0.5 S CLINDAMYCIN <=0.25 S DOXYCYCLINE S ERYTHROMYCIN >=8 R LEVOFLOXACIN <=0.12 S OXACILLIN >=4 R PENICILLIN-G >=0.5 R RIFAMPIN <=0.5 S VANCOMYCIN 2 S TRIMETHOPRIM/SULFAMETHOXAZOLE >=320 R WOUND CULTURE Preliminary NO GROWTH AFTER 1 DAY * 10/20/18 BCX (-); Urine Cx (-) DIAGNOSTIC IMAGING * 10/21/18 MRI ANKLE: 1. No evidence for osteomyelitis.2. Diffuse subcutaneous edema/cellulitic change about the hind foot without evidence of a drainable abscess. 3. 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 * 10/21/18 MRI FOOT: 1. Dorsal skin ulceration at the level of the second metatarsal phalangeal joint with a small amount of underlying subcutaneous phlegmon/developing abscess. The exact margins are difficult to determine without IV contrast.2. No evidence for osteomyelitis at this time. 3. Cellul itic changes about the forefoot. * 10/21/18 ARTERIAL DUPLEX: Decreased BAILEY bilaterally. Focal area of severe stenosis in the right dorsalis pedis. * 10/20/18 CXR: 1. No acute pulmonary disease. 2. Left lower lobe scar or chronic discoid atelectasis. PHYSICAL EXAMINATION: GENERAL: VSS, NAD HEENT: AT, NC, NECK: Supple, CHEST: Equal chest rise bilaterally without dyspnea on observation HEART: Pulse RRR ABDOMEN: Benign EXTREMITIES: Warm, dry -> right foot DSG C/D/I SKIN: No rash, no diaphoresis ID ASSESSMENT 43 yo M admit with: 1. Clinical sepsis on admission w/(+)Fevers, Tachycardia, Leukocytosis due to #2 2. Acute RIGHT FOOT/ANKLE CELLULITIS * (+) Dorsal skin ulceration at the level of the second metatarsal phalangeal joint with a small amount of underlying subcutaneous phlegmon/developing abscess. * (-)Osteomyelitis per MRI 3. 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 4. Peripheral arterial disease * 10/21/18 ARTERIAL DUPLEX: Decreased BAILEY bilaterally. Focal area of severe stenosis in the right dorsalis pedis. * PER VASCULAR SURG: no specific intervention for the arterial Doppler finding. 5. Hx of Bronchitis 6. HTN ABX ALLERGIES: KNDA INVASIVES: PIV CURRENT ABX: DAY # =>Vanco IV + Cefepime ID RECOMMENDATIONS/PLAN: 1. Continue current ABX 2. Right foot w/area of small abscess open ulcer not currently draining -- likely needs excisional debridement to release pus . Consultation Date/Type/Reason Admit Date/Time Oct 20, 2018 at 00:52 Initial Consult Date Date/Time of Note DATE: 10/23/18 TIME: 20:58 Exam/Review of Systems Exam Vitals Vital Signs Date Temp Pulse Resp B/P (MAP) Pulse Ox O2 O2 Flow FiO2 Time Delivery Rate 10/23/18 97.9 81 17 161/79 98 20:00 (106) 10/21/18 Room Air 15:58 Intake and Output 10/22/18 10/22/18 10/23/18 1414:59 22:59 06:59 IntakeIntake Total 1275 ml 900 ml 875 ml OutputOutput Total 800 ml 900 ml 600 ml BalanceBalance 475 ml 0 ml 275 ml Results Result Diagram: 10/23/18 0610/23/18622 Results 24hrs Laboratory Tests Test 10/23/18 02:12 10/23/18 06:23 10/23/18 08:02 10/23/18 12:21 Bedside Glucose 133 131 149 White Blood Count 9.2 Red Blood Count 3.62 L Hemoglobin 10.6 L Hematocrit 31.4 L Mean Corpuscular Volume 86.7 Mean Corpuscular 29.3 Hemoglobin Mean Corpuscular 33.8 Hemoglobin Concent Red Cell Distribution 11.8 Width Platelet Count 289 Mean Platelet Volume 9.7 Immature Granulocytes % 0.400 Neutrophils % 69.1 Lymphocytes % 18.4 Monocytes % 9.6 Eosinophils % 2.0 Basophils % 0.5 Nucleated Red Blood 0.0 Cells % Immature Granulocytes # 0.040 H Neutrophils # 6.3 Lymphocytes # 1.7 Monocytes # 0.9 Eosinophils # 0.2 Basophils # 0.1 Nucleated Red Blood 0.0 Cells # Sodium Level 142 Potassium Level 3.9 Chloride Level 106 Carbon Dioxide Level 28 Anion Gap 8 Blood Urea Nitrogen 9 Creatinine 0.60 L Est Glomerular Filtrat > 60 Rate mL/min Glucose Level 131 Calcium Level 9.0 Test 10/23/18 16:51 Bedside Glucose 101 Medications Medication Current Medications IV Flush (NS 3 ml) 3 ml PER PROTOCOL IV ; Start 10/20/18 at 03:30 Ondansetron HCl (Zofran Inj) 4 mg Q6H PRN IV NAUSEA/VOMITING; Start 10/20/18 at 03:30 Acetaminophen (Tylenol Tab) 650 mg Q6H PRN PO .PAIN 1-3 OR TEMP; Start 10/20/18 at 03:30 Heparin Sodium (Porcine) (Heparin (5000 Units/1ml)) 5,000 unit Q12 SC Last administered on 10/23/18at 08:16; Admin Dose 5,000 UNIT; Start 10/20/18 at 09:00 Albuterol/ Ipratropium (Duoneb) 3 ml Q2H RESP THERAPY PRN HHN SHORTNESS OF BREATH; Start 10/20/18 at 03:30 Ibuprofen (Motrin) 600 mg Q6 PO Last administered on 10/23/18at 17:41; Admin Dose 600 MG; Start 10/20/18 at 06:00 Promethazine HCl/ Codeine (Phenergan/ Codeine) 10 ml Q6H PRN PO COUGH; Start 10/20/18 at 03:30 Metformin HCl (Glucophage) 1,000 mg BID WITH MEALS PO Last administered on 10/23/18at 17:41; Admin Dose 1,000 MG; Start 10/20/18 at 08:00 Vancomycin HCl (Vanco Iv Per Pharmacy) VANCOMYCIN PER PHARMACY PER PROTOCOL XX ; Start 10/20/18 at 09:00 Cefepime HCl 50 ml @ 100 mls/hr Q12 IVPB Last administered on 10/23/18 08:19; Admin Dose 100 MLS/HR; Start 10/20/18 at 09:00 Diagnostic Test (Pha) (Accu-Chek) 1 ea 02 XX Last administered on 10/21/18at 02:06; Admin Dose 1 EA; Start 10/21/18 at 02:00 Insulin Glargine (Lantus) 14 units DAILY@0800 SC Last administered on 10/23/18 08:16; Admin Dose 14 UNITS; Start 10/20/18 at 08:00 Insulin Aspart (Novolog Insulin Pen) 6 unit WITH MEALS SC Last administered on 10/23/18 17:38; Admin Dose 6 UNIT; Start 10/20/18 at 07:35 Insulin Aspart (Novolog Insulin Pen) NOVOLOG *MODERATE* ALGORITHM WITH MEALS BEDTIME SC Last administered on 10/23/18 12:24; Admin Dose 2 UNIT; Start 10/20/18 at 08:00 Pantoprazole (Protonix Tab) 40 mg DAILY@06 PO Last administered on 10/23/18 05:35; Admin Dose 40 MG; Start 10/20/18 at 06:00 Miscellaneous Information 1 ea NOTE XX ; Start 10/20/18 at 04:00 Glucose (Glutose) 15 gm Q15M PRN PO DECREASED GLUCOSE; Start 10/20/18 at 04:00 Glucose (Glutose) 22.5 gm Q15M PRN PO DECREASED GLUCOSE; Start 10/20/18 at 04:00 Dextrose (D50w Syringe) 25 ml Q15M PRN IV DECREASED GLUCOSE; Start 10/20/18 at 04:00 Dextrose (D50w Syringe) 50 ml Q15M PRN IV DECREASED GLUCOSE; Start 10/20/18 at 04:00 Glucagon (Glucagen) 1 mg Q15M PRN IM DECREASED GLUCOSE; Start 10/20/18 at 04:00 Glucose (Glutose) 15 gm Q15M PRN BUCCAL DECREASED GLUCOSE; Start 10/20/18 at 04:00 Vancomycin HCl 250 ml @ 125 mls/hr Q8H IVPB Last administered on 10/23/18at 14:41; Admin Dose 125 MLS/HR; Start 10/20/18 at 06:00 Hydralazine HCl (Apresoline) 10 mg Q4H PRN IV ELEVATED BLOOD PRESSURE; Start 10/21/18 at 16:30 Sodium Hypochlorite (Dakins Diluted ()) 1 applic DAILY TP Last administered on 10/23/18at 08:20; Admin Dose 1 APPLIC; Start 10/22/18 at 12:00 Lisinopril (Zestril) 5 mg DAILY PO ; Start 10/24/18 at 09:00 MARIANA VINES NP Oct 23, 2018 21:01
[2018-10-24] MEDS: IBUPROFEN 600 MG TAB PO SCH ×5 (00:10→23:50)
[2018-10-24 02:00] VITALS: BP 156/80; PULSE 82; RESP 17
[2018-10-24] MEDS: ACCU-CHEK XX SCH (02:00)
[2018-10-24] MEDS: VANCOMYCIN 1 GM 250 ML IVPB SCH ×2 (06:05→13:25)
[2018-10-24] MEDS: PANTOPRAZOLE (EC) 40 MG TAB PO SCH (06:06)
[2018-10-24 07:48] VITALS: BP 170/89; PULSE 83; RESP 16
[2018-10-24] MEDS: INSULIN ASPART [NOVOLOG] 3 ML PEN SC SCH ×7 (08:17→21:00)
[2018-10-24] MEDS: INSULIN GLARGINE [LANTus] (100 UNITS/ML) SYG SC SCH (08:19)
[2018-10-24] MEDS: HEPARIN 5,000 UNIT/1 ML VIAL SC SCH ×2 (08:21→22:22)
[2018-10-24] MEDS: CEFEPIME 1GM/50 ML (PMX) 50 ML IVPB SCH (08:22)
[2018-10-24] MEDS: LISINOPRIL 5 MG TAB PO SCH (08:23)
[2018-10-24] MEDS: metFORMIN 500 MG TAB PO SCH ×2 (08:23→17:18)
[2018-10-24] MEDS: DAKINS 0.0125%(1/40) 473 ML SOLUTION TP SCH (08:25)
[2018-10-24 10:19] VITALS: BP 139/67; PULSE 92
--- NOTE | 2018-10-24 12:26 | PN ---
Date/Time of Note Date/Time of Note DATE: 10/24/18 TIME: 12:25 Assessment/Plan VTE Prophylaxis Risk score (from Nsg)>0 risk: 3 SCD applied (from Nsg): Yes Pharmacological prophylaxis: heparin Lines/Catheters IV Catheter Type (from Nrsg): Peripheral IV Assessment/Plan Hospital Course SUBJECTIVE: Complains of minimal right foot pain. OBJECTIVE: Physical Exam General: Adequately build 43 year-old male lying in bed in no apparent distress. HEENT: Normocephalic, atraumatic. Eyes: Anicteric sclerae, conjunctivae clear. ENT: Nasal septum midline, oral mucosa moist. Neck supple, no JVD noticed. Respiratory: Bilaterally clear breath sounds. No use of accessory muscles of respiration. No adventitious breath sounds. Cardiovascular: S1, S2 heard. Regular rate and rhythm. Abdomen: Soft, nontender, and nondistended. Bowel sounds positive in all 4 quadrants. Genitourinary: Deferred. Extremities: No cyanosis, no clubbing, no edema. Right foot dressing. Peripheral pulses palpable. Neurologic: Cranial nerves II through XII grossly intact. The patient is awake, alert, and oriented. Skin: Normal skin turgor. No skin rashes. Labs & Vitals per chart ASSESSMENT & PLAN 43-year-old male with comorbidities including diabetes mellitus type 2 who came to the emergency room with chief complaint of pain in the right foot with swelling and redness, who was found to have evidence of underlying right lower extremity cellulitis, and was admitted to inpatient setting for further treatment and evaluation. 1. Right foot cellulitis. Continue antimicrobials as per ID. Being followed by podiatry. Status post evaluation by vascular surgery who recommended no specific int ervention for the arterial Doppler finding. 2. Diabetes mellitus type 2. Hemoglobin A1c 9.2. Continue sliding scale insulin along with pre-meal insulin basal insulin. Continue metformin. 3. Hypertension. Continue antihypertensives. 4. Normocytic anemia. Probably anemia of chronic disease. Monitor H&H closely. 5. Fluids, electrolytes, and nutrition. Carbohydrate controlled diet. 6. DVT prophylaxis. Subcutaneous heparin. 7. Plan. Continue antimicrobials as per ID. Local wound care as per podiatry. Await clinical improvement before discharging the patient home. The patient was seen in collaboration with Dr. Byrnes. Result Diagram: 10/24/18 0558 10/24/18557 Results 24hrs Laboratory Tests Test 7/8/19 16:51 10/23/18 21:29 10/24/18 05:58 10/24/18 08:10 Bedside Glucose 101 137 159 White Blood Count 6.6 # Red Blood Count 3.74 L Hemoglobin 10.8 L Hematocrit 32.0 L Mean Corpuscular Volume 85.6 Mean Corpuscular 28.9 L Hemoglobin Mean Corpuscular 33.8 Hemoglobin Concent Red Cell Distribution 11.9 Width Platelet Count 289 Mean Platelet Volume 9.3 Immature Granulocytes % 0.600 H Neutrophils % 63.5 Lymphocytes % 22.0 Monocytes % 9.7 Eosinophils % 3.6 Basophils % 0.6 Nucleated Red Blood 0.0 Cells % Immature Granulocytes # 0.040 H Neutrophils # 4.2 Lymphocytes # 1.5 Monocytes # 0.6 Eosinophils # 0.2 Basophils # 0.0 Nucleated Red Blood 0.0 Cells # Sodium Level 141 Potassium Level 4.0 Chloride Level 107 Carbon Dioxide Level 28 Anion Gap 6 Blood Urea Nitrogen 10 Creatinine 0.57 L Est Glomerular Filtrat > 60 Rate mL/min Glucose Level 138 Calcium Level 9.4 Phosphorus Level 4.2 Magnesium Level 1.7 Vitamin D 1,25-Dihydroxy 21.2 L Test 10/24/18 12:18 Bedside Glucose 202 Exam/Review of Systems Exam Vitals Vital Signs Date Temp Pulse Resp B/P (MAP) Pulse Ox O2 O2 Flow FiO2 Time Delivery Rate 10/24/18 92 139/67 10:19 (91) 10/24/18 98.0 16 99 07:48 10/21/18 Room Air 15:58 Intake and Output 10/23/18 10/23/18 10/24/18 1515:00 23:00 07:00 IntakeIntake Total 1020 ml 1040 ml 1170 ml OutputOutput Total 1650 ml 1600 ml BalanceBalance -630 ml 1040 ml -430 ml Results Results 24hrs Laboratory Tests Test 10/23/18 16:51 10/23/18 21:29 10/24/18 05:58 10/24/18 08:10 Bedside Glucose 101 137 159 White Blood Count 6.6 # Red Blood Count 3.74 L Hemoglobin 10.8 L Hematocrit 32.0 L Mean Corpuscular Volume 85.6 Mean Corpuscular 28.9 L Hemoglobin Mean Corpuscular 33.8 Hemoglobin Concent Red Cell Distribution 11.9 Width Platelet Count 289 Mean Platelet Volume 9.3 Immature Granulocytes % 0.600 H Neutrophils % 63.5 Lymphocytes % 22.0 Monocytes % 9.7 Eosinophils % 3.6 Basophils % 0.6 Nucleated Red Blood 0.0 Cells % Immature Granulocytes # 0.040 H Neutrophils # 4.2 Lymphocytes # 1.5 Monocytes # 0.6 Eosinophils # 0.2 Basophils # 0.0 Nucleated Red Blood 0.0 Cells # Sodium Level 141 Potassium Level 4.0 Chloride Level 107 Carbon Dioxide Level 28 Anion Gap 6 Blood Urea Nitrogen 10 Creatinine 0.57 L Est Glomerular Filtrat > 60 Rate mL/min Glucose Level 138 Calcium Level 9.4 Phosphorus Level 4.2 Magnesium Level 1.7 Vitamin D 1,25-Dihydroxy 21.2 L Test 10/24/18 12:18 Bedside Glucose 202 Medications Medication Current Medications IV Flush (NS 3 ml) 3 ml PER PROTOCOL IV ; Start 10/20/18 at 03:30 Ondansetron HCl (Zofran Inj) 4 mg Q6H PRN IV NAUSEA/VOMITING; Start 10/20/18 at 03:30 Acetaminophen (Tylenol Tab) 650 mg Q6H PRN PO .PAIN 1-3 OR TEMP; Start 10/20/18 at 03:30 Heparin Sodium (Porcine) (Heparin (5000 Units/1ml)) 5,000 unit Q12 SC Last administered on 10/24/18at 08:21; Admin Dose 5,000 UNIT; Start 10/20/18 at 09:00 Albuterol/ Ipratropium (Duoneb) 3 ml Q2H RESP THERAPY PRN HHN SHORTNESS OF BREATH; Start 10/20/18 at 03:30 Ibuprofen (Motrin) 600 mg Q6 PO Last administered on 10/24/18at 12:18; Admin Dose 600 MG; Start 10/20/18 at 06:00 Promethazine HCl/ Codeine (Phenergan/ Codeine) 10 ml Q6H PRN PO COUGH; Start 10/20/18 at 03:30 Metformin HCl (Glucophage) 1,000 mg BID WITH MEALS PO Last administered on 10/24/18at 08:23; Admin Dose 1,000 MG; Start 10/20/18 at 08:00 Vancomycin HCl (Vanco Iv Per Pharmacy) VANCOMYCIN PER PHARMACY PER PROTOCOL XX ; Start 10/20/18 at 09:00 Cefepime HCl 50 ml @ 100 mls/hr Q12 IVPB Last administered on 10/24/18at 08:22; Admin Dose 100 MLS/HR; Start 10/20/18 at 09:00 Diagnostic Test (Pha) (Accu-Chek) 1 ea 02 XX Last administered on 10/21/18at 02:06; Admin Dose 1 EA; Start 10/21/18 at 02:00 Insulin Glargine (Lantus) 14 units DAILY@0800 SC Last administered on 10/24/18at 08:19; Admin Dose 14 UNITS; Start 10/20/18 at 08:00 Insulin Aspart (Novolog Insulin Pen) 6 unit WITH MEALS SC Last administered on 10/24/18at 12:20; Admin Dose 6 UNIT; Start 10/20/18 at 07:35 Insulin Aspart (Novolog Insulin Pen) NOVOLOG *MODERATE* ALGORITHM WITH MEALS BEDTIME SC Last administered on 10/24/18at 12:21; Admin Dose 4 UNIT; Start 10/20/18 at 08:00 Pantoprazole (Protonix Tab) 40 mg DAILY@06 PO Last administered on 10/24/18at 06:06; Admin Dose 40 MG; Start 10/20/18 at 06:00 Miscellaneous Information 1 ea NOTE XX ; Start 10/20/18 at 04:00 Glucose (Glutose) 15 gm Q15M PRN PO DECREASED GLUCOSE; Start 10/20/18 at 04:00 Glucose (Glutose) 22.5 gm Q15M PRN PO DECREASED GLUCOSE; Start 10/20/18 at 04:00 Dextrose (D50w Syringe) 25 ml Q15M PRN IV DECREASED GLUCOSE; Start 10/20/18 at 04:00 Dextrose (D50w Syringe) 50 ml Q15M PRN IV DECREASED GLUCOSE; Start 10/20/18 at 04:00 Glucagon (Glucagen) 1 mg Q15M PRN IM DECREASED GLUCOSE; Start 10/20/18 at 04:00 Glucose (Glutose) 15 gm Q15M PRN BUCCAL DECREASED GLUCOSE; Start 10/20/18 at 04:00 Vancomycin HCl 250 ml @ 125 mls/hr Q8H IVPB Last administered on 10/24/18at 06:05; Admin Dose 125 MLS/HR; Start 10/20/18 at 06:00 Hydralazine HCl (Apresoline) 10 mg Q4H PRN IV ELEVATED BLOOD PRESSURE; Start 10/21/18 at 16:30 Sodium Hypochlorite (Dakins Diluted ()) 1 applic DAILY TP Last administered on 10/24/18at 08:25; Admin Dose 1 APPLIC; Start 10/22/18 at 12:00 Lisinopril (Zestril) 5 mg DAILY PO Last administered on 10/24/18at 08:23; Admin Dose 5 MG; Start 10/24/18 at 09:00 SOLOMON SIMEON NP Oct 24, 2018 12:26
--- NOTE | 2018-10-24 16:53 | CONS ---
Assessment/Plan Assessment/Plan Hospital Course (Demo Recall) Alert looks comfortable afebrile WBC 6.6 no shift no bands BUN 10 creatinine 0.57 Right foot wound culture growing coag negative staph species Blood urine culture negative Antimicrobials: Vancomycin, cefepime MRI of right foot revealed no evidence of osteomyelitis. MRI of right foot revealed no evidence of osteomyelitis Physical examination: Well-developed well-nourished middle-aged man who is alert in no distress. Head atraumatic normocephalic sclera nonicteric neck is supple chest rise symmetrical breath sounds clear heart: S1-S2 abdomen soft bowel sounds present. Extremities with right foot dressing intact Assessment: 1. Right foot cellulitis with spontaneously drained abscess 2. Diabetes with peripheral neuropathy Plan: Patient is stable, change antibiotics to clindamycin Consultation Date/Type/Reason Admit Date/Time Oct 20, 2018 at 00:52 Initial Consult Date Type of Consult id Date/Time of Note DATE: 10/24/18 TIME: 16:53 Exam/Review of Systems Exam Vitals Vital Signs Date Temp Pulse Resp B/P (MAP) Pulse Ox O2 O2 Flow FiO2 Time Delivery Rate 10/24/18 92 139/67 10:19 (91) 10/24/18 98.0 16 99 07:48 10/21/18 Room Air 15:58 Intake and Output 10/23/18 10/23/18 10/24/18 1515:00 23:00 07:00 IntakeIntake Total 1020 ml 1040 ml 1170 ml OutputOutput Total 1650 ml 1600 ml BalanceBalance -630 ml 1040 ml -430 ml Results Result Diagram: 10/24/18 0558 10/24/18 0558 Results 24hrs Laboratory Tests Test 10/23/18 21:29 10/24/18 05:58 10/24/18 08:10 10/24/18 12:18 Bedside Glucose 137 159 202 White Blood Count 6.6 # Red Blood Count 3.74 L Hemoglobin 10.8 L Hematocrit 32.0 L Mean Corpuscular Volume 85.6 Mean Corpuscular 28.9 L Hemoglobin Mean Corpuscular 33.8 Hemoglobin Concent Red Cell Distribution 11.9 Width Platelet Count 289 Mean Platelet Volume 9.3 Immature Granulocytes % 0.600 H Neutrophils % 63.5 Lymphocytes % 22.0 Monocytes % 9.7 Eosinophils % 3.6 Basophils % 0.6 Nucleated Red Blood 0.0 Cells % Immature Granulocytes # 0.040 H Neutrophils # 4.2 Lymphocytes # 1.5 Monocytes # 0.6 Eosinophils # 0.2 Basophils # 0.0 Nucleated Red Blood 0.0 Cells # Sodium Level 141 Potassium Level 4.0 Chloride Level 107 Carbon Dioxide Level 28 Anion Gap 6 Blood Urea Nitrogen 10 Creatinine 0.57 L Est Glomerular Filtrat > 60 Rate mL/min Glucose Level 138 Calcium Level 9.4 Phosphorus Level 4.2 Magnesium Level 1.7 Vitamin D 1,25-Dihydroxy 21.2 L Medications Medication Current Medications IV Flush (NS 3 ml) 3 ml PER PROTOCOL IV ; Start 10/20/18 at 03:30 Ondansetron HCl (Zofran Inj) 4 mg Q6H PRN IV NAUSEA/VOMITING; Start 10/20/18 at 03:30 Acetaminophen (Tylenol Tab) 650 mg Q6H PRN PO .PAIN 1-3 OR TEMP; Start 10/20/18 at 03:30 Heparin Sodium (Porcine) (Heparin (5000 Units/1ml)) 5,000 unit Q12 SC Last administered on 10/24/18at 08:21; Admin Dose 5,000 UNIT; Start 10/20/18 at 09:00 Albuterol/ Ipratropium (Duoneb) 3 ml Q2H RESP THERAPY PRN HHN SHORTNESS OF BREATH; Start 10/20/18 at 03:30 Ibuprofen (Motrin) 600 mg Q6 PO Last administered on 10/24/18at 12:18; Admin Dose 600 MG; Start 10/20/18 at 06:00 Promethazine HCl/ Codeine (Phenergan/ Codeine) 10 ml Q6H PRN PO COUGH; Start 10/20/18 at 03:30 Metformin HCl (Glucophage) 1,000 mg BID WITH MEALS PO Last administered on 10/24/18at 08:23; Admin Dose 1,000 MG; Start 10/20/18 at 08:00 Vancomycin HCl (Vanco Iv Per Pharmacy) VANCOMYCIN PER PHARMACY PER PROTOCOL XX ; Start 10/20/18 at 09:00 Cefepime HCl 50 ml @ 100 mls/hr Q12 IVPB Last administered on 10/24/18at 08:22; Admin Dose 100 MLS/HR; Start 10/20/18 at 09:00 Diagnostic Test (Pha) (Accu-Chek) 1 ea 02 XX Last administered on 10/21/18at 02:06; Admin Dose 1 EA; Start 10/21/18 at 02:00 Insulin Glargine (Lantus) 14 units DAILY@0800 SC Last administered on 10/24/18at 08:19; Admin Dose 14 UNITS; Start 10/20/18 at 08:00 Insulin Aspart (Novolog Insulin Pen) 6 unit WITH MEALS SC Last administered on 10/24/18at 12:20; Admin Dose 6 UNIT; Start 10/20/18 at 07:35 Insulin Aspart (Novolog Insulin Pen) NOVOLOG *MODERATE* ALGORITHM WITH MEALS BEDTIME SC Last administered on 10/24/18at 12:21; Admin Dose 4 UNIT; Start 10/20/18 at 08:00 Pantoprazole (Protonix Tab) 40 mg DAILY@06 PO Last administered on 10/24/18at 06:06; Admin Dose 40 MG; Start 10/20/18 at 06:00 Miscellaneous Information 1 ea NOTE XX ; Start 10/20/18 at 04:00 Glucose (Glutose) 15 gm Q15M PRN PO DECREASED GLUCOSE; Start 10/20/18 at 04:00 Glucose (Glutose) 22.5 gm Q15M PRN PO DECREASED GLUCOSE; Start 10/20/18 at 04:00 Dextrose (D50w Syringe) 25 ml Q15M PRN IV DECREASED GLUCOSE; Start 10/20/18 at 04:00 Dextrose (D50w Syringe) 50 ml Q15M PRN IV DECREASED GLUCOSE; Start 10/20/18 at 04:00 Glucagon (Glucagen) 1 mg Q15M PRN IM DECREASED GLUCOSE; Start 10/20/18 at 04:00 Glucose (Glutose) 15 gm Q15M PRN BUCCAL DECREASED GLUCOSE; Start 10/20/18 at 04:00 Vancomycin HCl 250 ml @ 125 mls/hr Q8H IVPB Last administered on 10/24/18at 13: 25; Admin Dose 125 MLS/HR; Start 10/20/18 at 06:00 Hydralazine HCl (Apresoline) 10 mg Q4H PRN IV ELEVATED BLOOD PRESSURE; Start 10/21/18 at 16:30 Sodium Hypochlorite (Dakins Diluted ()) 1 applic DAILY TP Last administered on 10/24/18at 08:25; Admin Dose 1 APPLIC; Start 10/22/18 at 12:00 Lisinopril (Zestril) 5 mg DAILY PO Last administered on 10/24/18at 08:23; Admin Dose 5 MG; Start 10/24/18 at 09:00 Cholecalciferol (Vitamin D) 1,000 unit DAILY PO ; Start 10/25/18 at 09:00 Miscellaneous Information (*Rx Drug Level Order Reminder*) VANCOMYCIN TROUGH 10/24 AT 2100 2100 ONCE XX ; Start 10/24/18 at 21:00; Stop 10/24/18 at 21:01 JACOBO KAISER NP Oct 24, 2018 16:53
--- NOTE | 2018-10-24 18:06 | CONS ---
Assessment/Plan Assessment/Plan Assessment/Plan (Daily) Right foot cellulitis. Right foot abscess second metatarsophalangeal location. Diabetes with peripheral neuropathy. Plan: Consent was obtained and performed excisional debridement of skin/subQ/fascia of the foot diabetic dorsal ulceration site using pickup/scissors. Necrotic, fibrotic tissue along with 3-4mL of purulence was expressed from the ulceration site. There was periwound undermining appreciated. Copious betadine saline irrigation was used at the ulceration site. Wound cultures were obtained. 1/4in iodoform packing with betadine 4x4 gauze, kerlix and joaquim wrap. Appreciate ID recommendations for antibiotic therapy. Patient would benefit from home health care with daily dressing changes and recommend outpatient follow up at [facility] wound care clinic. Consultation Date/Type/Reason Admit Date/Time Oct 20, 2018 at 00:52 Initial Consult Date Date/Time of Note DATE: 10/24/18 TIME: 18:06 24 HR Interval Summary Free Text/Dictation No acute events overnight. Exam/Review of Systems Exam Vitals Vital Signs Date Temp Pulse Resp B/P (MAP) Pulse Ox O2 O2 Flow FiO2 Time Delivery Rate 10/24/18 92 139/67 10:19 (91) 10/24/18 98.0 16 99 07:48 10/21/18 Room Air 15:58 Intake and Output 10/23/18 10/23/18 10/24/18 1515:00 23:00 07:00 IntakeIntake Total 1020 ml 1040 ml 1170 ml OutputOutput Total 1650 ml 1600 ml BalanceBalance -630 ml 1040 ml -430 ml Exam DP pulse palpable 1+ pitting edema Dorsal right foot ulceration 2 x 2 x 0.5cm which probes to bone there is fibronecrotic wound base with purulent drainage appreciated. Periwound erythema noted, no proximal streaking Absent protective sensations Muscle strength 5/5 in all compartments of the foot Results Result Diagram: 10/24/18 0558 10/24/18 0558 Results 24hrs Laboratory Tests Test 10/23/18 21:29 10/24/18 05:58 10/24/18 08:10 10/24/18 12:18 Bedside Glucose 137 159 202 White Blood Count 6.6 # Red Blood Count 3.74 L Hemoglobin 10.8 L Hematocrit 32.0 L Mean Corpuscular Volume 85.6 Mean Corpuscular 28.9 L Hemoglobin Mean Corpuscular 33.8 Hemoglobin Concent Red Cell Distribution 11.9 Width Platelet Count 289 Mean Platelet Volume 9.3 Immature Granulocytes % 0.600 H Neutrophils % 63.5 Lymphocytes % 22.0 Monocytes % 9.7 Eosinophils % 3.6 Basophils % 0.6 Nucleated Red Blood 0.0 Cells % Immature Granulocytes # 0.040 H Neutrophils # 4.2 Lymphocytes # 1.5 Monocytes # 0.6 Eosinophils # 0.2 Basophils # 0.0 Nucleated Red Blood 0.0 Cells # Sodium Level 141 Potassium Level 4.0 Chloride Level 107 Carbon Dioxide Level 28 Anion Gap 6 Blood Urea Nitrogen 10 Creatinine 0.57 L Est Glomerular Filtrat > 60 Rate mL/min Glucose Level 138 Calcium Level 9.4 Phosphorus Level 4.2 Magnesium Level 1.7 Vitamin D 1,25-Dihydroxy 21.2 L Test 10/24/18 17:17 Bedside Glucose 100 Medications Medication Current Medications IV Flush (NS 3 ml) 3 ml PER PROTOCOL IV ; Start 10/20/18 at 03:30 Ondansetron HCl (Zofran Inj) 4 mg Q6H PRN IV NAUSEA/VOMITING; Start 10/20/18 at 03:30 Acetaminophen (Tylenol Tab) 650 mg Q6H PRN PO .PAIN 1-3 OR TEMP; Start 10/20/18 at 03:30 Heparin Sodium (Porcine) (Heparin (5000 Units/1ml)) 5,000 unit Q12 SC Last administered on 10/24/18at 08:21; Admin Dose 5,000 UNIT; Start 10/20/18 at 09:00 Albuterol/ Ipratropium (Duoneb) 3 ml Q2H RESP THERAPY PRN HHN SHORTNESS OF BREATH; Start 10/20/18 at 03:30 Ibuprofen (Motrin) 600 mg Q6 PO Last administered on 10/24/18at 17:18; Admin Dose 600 MG; Start 10/20/18 at 06:00 Promethazine HCl/ Codeine (Phenergan/ Codeine) 10 ml Q6H PRN PO COUGH; Start 10/20/18 at 03:30 Metformin HCl (Glucophage) 1,000 mg BID WITH MEALS PO Last administered on 10/24/18at 17:18; Admin Dose 1,000 MG; Start 10/20/18 at 08:00 Diagnostic Test (Pha) (Accu-Chek) 1 ea 02 XX Last administered on 10/21/18at 02:06; Admin Dose 1 EA; Start 10/21/18 at 02:00 Insulin Glargine (Lantus) 14 units DAILY@0800 SC Last administered on 10/24/18at 08:19; Admin Dose 14 UNITS; Start 10/20/18 at 08:00 Insulin Aspart (Novolog Insulin Pen) 6 unit WITH MEALS SC Last administered on 10/24/18at 17:19; Admin Dose 6 UNIT; Start 10/20/18 at 07:35 Insulin Aspart (Novolog Insulin Pen) NOVOLOG *MODERATE* ALGORITHM WITH MEALS BEDTIME SC Last administered on 10/24/18at 12:21; Admin Dose 4 UNIT; Start 10/20/18 at 08:00 Pantoprazole (Protonix Tab) 40 mg DAILY@06 PO Last administered on 10/24/18at 06:06; Admin Dose 40 MG; Start 10/20/18 at 06:00 Miscellaneous Information 1 ea NOTE XX ; Start 10/20/18 at 04:00 Glucose (Glutose) 15 gm Q15M PRN PO DECREASED GLUCOSE; Start 10/20/18 at 04:00 Glucose (Glutose) 22.5 gm Q15M PRN PO DECREASED GLUCOSE; Start 10/20/18 at 04:00 Dextrose (D50w Syringe) 25 ml Q15M PRN IV DECREASED GLUCOSE; Start 10/20/18 at 04:00 Dextrose (D50w Syringe) 50 ml Q15M PRN IV DECREASED GLUCOSE; Start 10/20/18 at 04:00 Glucagon (Glucagen) 1 mg Q15M PRN IM DECREASED GLUCOSE; Start 10/20/18 at 04:00 Glucose (Glutose) 15 gm Q15M PRN BUCCAL DECREASED GLUCOSE; Start 10/20/18 at 04:00 Hydralazine HCl (Apresoline) 10 mg Q4H PRN IV ELEVATED BLOOD PRESSURE; Start 10/21/18 at 16:30 Sodium Hypochlorite (Dakins Diluted (40)) 1 applic DAILY TP Last administered on 10/24/18at 08:25; Admin Dose 1 APPLIC; Start 10/22/18 at 12:00 Lisinopril (Zestril) 5 mg DAILY PO Last administered on 10/24/18at 08:23; Admin Dose 5 MG; Start 10/24/18 at 09:00 Cholecalciferol (Vitamin D) 1,000 unit DAILY PO ; Start 10/25/18 at 09:00 Clindamycin HCl/ Dextrose 50 ml @ 50 mls/hr Q8 IVPB ; Start 10/24/18 at 22:00 YOLIE HOWE DPM Oct 24, 2018 18:06
[2018-10-24 20:03] VITALS: BP 165/84; PULSE 85; RESP 18
[2018-10-24] MEDS: CLINDAMYCIN 600 MG/D5W (PMX) 50 ML IVPB SCH (22:20)
[2018-10-25] MEDS: ACCU-CHEK XX SCH (02:00)
[2018-10-25 02:56] VITALS: BP 138/81; PULSE 83; RESP 18
[2018-10-25] MEDS: CLINDAMYCIN 600 MG/D5W (PMX) 50 ML IVPB SCH ×2 (06:16→13:48)
[2018-10-25] MEDS: PANTOPRAZOLE (EC) 40 MG TAB PO SCH (06:16)
[2018-10-25] MEDS: IBUPROFEN 600 MG TAB PO SCH ×3 (06:17→17:27)
[2018-10-25 07:30] VITALS: BP 139/75; PULSE 77; RESP 24
[2018-10-25] MEDS: metFORMIN 500 MG TAB PO SCH ×2 (08:21→17:27)
[2018-10-25] MEDS: INSULIN ASPART [NOVOLOG] 3 ML PEN SC SCH ×6 (08:22→17:27)
[2018-10-25] MEDS: INSULIN GLARGINE [LANTus] (100 UNITS/ML) SYG SC SCH (08:23)
[2018-10-25] MEDS: LISINOPRIL 5 MG TAB PO SCH (08:45)
[2018-10-25] MEDS: HEPARIN 5,000 UNIT/1 ML VIAL SC SCH (08:46)
[2018-10-25] MEDS: DAKINS 0.0125%(1/40) 473 ML SOLUTION TP SCH ×2 (08:51→15:15)
[2018-10-25] MEDS ORDERED: CHOLECALCIFEROL 1,000 UNIT TAB PO SCH (09:00)
[2018-10-25 09:19] VITALS: RESP 20
--- NOTE | 2018-10-25 11:21 | CONS ---
Assessment/Plan Assessment/Plan Hospital Course (Demo Recall) No events, looks comfortable, no fevers Right foot wound culture growing coag negative staph species Blood urine culture negative Antimicrobials: Clindamycin MRI of right foot revealed no evidence of osteomyelitis. MRI of right foot revealed no evidence of osteomyelitis Physical examination: Well-developed well-nourished middle-aged man who is alert in no distress. Head atraumatic normocephalic sclera nonicteric neck is supple chest rise symmetrical breath sounds clear heart: S1-S2 abdomen soft bowel sounds present. Extremities with right foot dressing intact Assessment: 1. Right foot cellulitis with spontaneously drained abscess 2. Diabetes with peripheral neuropathy Plan: Stable, continue antibiotics, anticipate dc on oral Clinda when cleared by podiatry Consultation Date/Type/Reason Admit Date/Time Oct 20, 2018 at 00:52 Initial Consult Date Type of Consult id Date/Time of Note DATE: 10/25/18 TIME: 11:20 Exam/Review of Systems Exam Vitals Vital Signs Date Temp Pulse Resp B/P (MAP) Pulse Ox O2 O2 Flow FiO2 Time Delivery Rate 10/25/18 20 09:19 10/25/18 97.9 77 139/75 99 07:30 (96) 10/21/18 Room Air 15:58 Intake and Output 10/24/18 10/24/18 10/25/18 1515:00 23:00 07:00 IntakeIntake Total 180 ml 250 ml 50 ml OutputOutput Total 600 ml BalanceBalance 180 ml 250 ml -550 ml Results Result Diagram: 10/25/18 0653 10/25/18 0653 Results 24hrs Laboratory Tests Test 10/24/18 12:18 10/24/18 17:17 10/24/18 22:13 10/25/18 06:53 Bedside Glucose 202 100 125 White Blood Count 7.8 Red Blood Count 3.84 L Hemoglobin 11.2 L Hematocrit 33.6 L Mean Corpuscular 87.5 Volume Mean Corpuscular 29.2 Hemoglobin Mean Corpuscular 33.3 Hemoglobin Concent Red Cell Distribution 11.9 Width Platelet Count 338 Mean Platelet Volume 9.4 Immature Granulocytes 0.800 H % Neutrophils % 67.4 Lymphocytes % 19.9 Monocytes % 8.3 Eosinophils % 3.1 Basophils % 0.5 Nucleated Red Blood 0.0 Cells % Immature Granulocytes 0.060 H # Neutrophils # 5.3 Lymphocytes # 1.6 Monocytes # 0.7 Eosinophils # 0.2 Basophils # 0.0 Nucleated Red Blood 0.0 Cells # Sodium Level 142 Potassium Level 4.5 Chloride Level 105 Carbon Dioxide Level 30 Anion Gap 7 Blood Urea Nitrogen 11 Creatinine 0.63 Est Glomerular Filtrat > 60 Rate mL/min Glucose Level 131 Calcium Level 9.5 Phosphorus Level 4.3 Magnesium Level 1.8 Test 10/25/18 07:57 Bedside Glucose 149 Medications Medication Current Medications IV Flush (NS 3 ml) 3 ml PER PROTOCOL IV ; Start 10/20/18 at 03:30 Ondansetron HCl (Zofran Inj) 4 mg Q6H PRN IV NAUSEA/VOMITING; Start 10/20/18 at 03:30 Acetaminophen (Tylenol Tab) 650 mg Q6H PRN PO .PAIN 1-3 OR TEMP; Start 10/20/18 at 03:30 Heparin Sodium (Porcine) (Heparin (5000 Units/1ml)) 5,000 unit Q12 SC Last administered on 10/25/18at 08:46; Admin Dose 5,000 UNIT; Start 10/20/18 at 09:00 Albuterol/ Ipratropium (Duoneb) 3 ml Q2H RESP THERAPY PRN HHN SHORTNESS OF BREATH; Start 10/20/18 at 03:30 Ibuprofen (Motrin) 600 mg Q6 PO Last administered on 10/25/18at 06:17; Admin Dose 600 MG; Start 10/20/18 at 06:00 Promethazine HCl/ Codeine (Phenergan/ Codeine) 10 ml Q6H PRN PO COUGH; Start 10/20/18 at 03:30 Metformin HCl (Glucophage) 1,000 mg BID WITH MEALS PO Last administered on 10/25/18at 08:21; Admin Dose 1,000 MG; Start 10/20/18 at 08:00 Diagnostic Test (Pha) (Accu-Chek) 1 ea 02 XX Last administered on 10/21/18at 02:06; Admin Dose 1 EA; Start 10/21/18 at 02:00 Insulin Glargine (Lantus) 14 units DAILY@0800 SC Last administered on 10/25/18at 08:23; Admin Dose 14 UNITS; Start 10/20/18 at 08:00 Insulin Aspart (Novolog Insulin Pen) 6 unit WITH MEALS SC Last administered on 10/25/18at 08:23; Admin Dose 6 UNIT; Start 10/20/18 at 07:35 Insulin Aspart (Novolog Insulin Pen) NOVOLOG *MODERATE* ALGORITHM WITH MEALS BEDTIME SC Last administered on 10/25/18at 08:22; Admin Dose 2 UNIT; Start 10/20/18 at 08:00 Pantoprazole (Protonix Tab) 40 mg DAILY@06 PO Last administered on 10/25/18at 06:16; Admin Dose 40 MG; Start 10/20/18 at 06:00 Miscellaneous Information 1 ea NOTE XX ; Start 10/20/18 at 04:00 Glucose (Glutose) 15 gm Q15M PRN PO DECREASED GLUCOSE; Start 10/20/18 at 04:00 Glucose (Glutose) 22.5 gm Q15M PRN PO DECREASED GLUCOSE; Start 10/20/18 at 04:00 Dextrose (D50w Syringe) 25 ml Q15M PRN IV DECREASED GLUCOSE; Start 10/20/18 at 04:00 Dextrose (D50w Syringe) 50 ml Q15M PRN IV DECREASED GLUCOSE; Start 10/20/18 at 04:00 Glucagon (Glucagen) 1 mg Q15M PRN IM DECREASED GLUCOSE; Start 10/20/18 at 04:00 Glucose (Glutose) 15 gm Q15M PRN BUCCAL DECREASED GLUCOSE; Start 10/20/18 at 04:00 Hydralazine HCl (Apresoline) 10 mg Q4H PRN IV ELEVATED BLOOD PRESSURE; Start 10/21/18 at 16:30 Sodium Hypochlorite (Dakins Diluted (40)) 1 applic DAILY TP Last administered on 10/24/18at 08:25; Admin Dose 1 APPLIC; Start 10/22/18 at 12:00 Lisinopril (Zestril) 5 mg DAILY PO Last administered on 10/25/18at 08:45; Admin Dose 5 MG; Start 10/24/18 at 09:00 Cholecalciferol (Vitamin D) 1,000 unit DAILY PO Last administered on 10/25/18at 08:46; Admin Dose 1,000 UNIT; Start 10/25/18 at 09:00 Clindamycin HCl/ Dextrose 50 ml @ 50 mls/hr Q8 IVPB Last administered on 10/25/18at 06:16; Admin Dose 50 MLS/HR; Start 10/24/18 at 22:00 JACOBO KAISER NP Oct 25, 2018 11:21
[2018-10-25] MEDS ORDERED: METF-849 PO (12:27)
[2018-10-25] MEDS ORDERED: LISI-313 PO (12:27)
[2018-10-25] MEDS ORDERED: CHOL100062 PO (12:27)
[2018-10-25] MEDS ORDERED: GLIP5TAB13 PO (12:27)
[2018-10-25] MEDS ORDERED: CLIN300C10 PO (12:28)
[2018-10-25 14:00] VITALS: BP 117/69; PULSE 83; RESP 20
--- NOTE | 2018-10-25 15:16 | PDOCDIS ---
Discharge Instructions CONDITION [id number] Patient Condition: [id number] Stable HOME CARE INSTRUCTIONS: [id number] Special Diet: [id number] Low carbohydrate diet FOLLOW UP/APPOINTMENTS Follow-up Plan Wound care clinic at [facility]. Please call for appointment. . OTHER ORDERS: Other Orders: 1. Take medications as per prescription. 2. Take a low-cholesterol, low carbohydrate diet. 3. Resume activities as tolerated. 4. Follow-up with the wound care clinic at [facility] in 1 week. Please call for appointment. 5. Please follow-up with your primary care physician in 2 weeks. 6. Please go to the nearest emergency room if you have persistent fevers, significant pain in the foot. or any other unusual signs/symptoms. 1. Kalyn medicamentos segn la prescripcin. 2. Hominy jo-ann dieta baja en colesterol y baja en carbohidratos. 3. Reanudar las actividades segn lo tolerado. 4. Fabio un seguimiento con la clnica de cuidado de heridas en el [facility] en 1 semana. Por favor llame para jo-ann davon. 5. Por favor, fabio un seguimiento con sarmiento mdico de atencin primaria en 2 semanas. 6. Vaya a la zenon de emergencias ms cercana si tiene fiebres persistentes, dolor significativo en el pie. o cualquier otro signo / sntoma inusual SOLOMON SIMEON NP Oct 25, 2018 15:15
--- NOTE | 2018-10-25 15:43 | DS ---
Date/Time of Note Date/Time of Note DATE: 10/25/18 TIME: 15:40 Discharge Summary Admission/Discharge Info Admit Date/Time Oct 20, 2018 at 00:52 Discharge Date/Time Discharge Diagnosis 1. Right foot cellulitis. 2. Right foot abscess second metatarsophalangeal location. S/P I & D. 3. Diabetes mellitus type 2. Hemoglobin A1c 9.2. 4. Hypertension. 5. Normocytic anemia. Patient Condition: Stable Consults 1. Corby Gomez DPM, Podiatry. 2. Naseem Song DPM, Podiatry. 3. Tone Acharya MD, Infectious Diseases. 4. Car Reina MD, Vascular Surgery. Procedures Right Ankle MRI IMPRESSION: 1. No evidence for osteomyelitis. 2. Diffuse subcutaneous edema/cellulitic change about the hind foot without evidence of a drainable abscess. 3. 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 Right Foot MRI IMPRESSION: 1. Dorsal skin ulceration at the level of the second metatarsal phalangeal joint with a small amount of underlying subcutaneous phlegmon/developing abscess. The exact margins are difficult to determine without IV contrast. 2. No evidence for osteomyelitis at this time. 3. Cellulitic changes about the forefoot. Hx of Present Illness This is a 43-year-old male with comorbidities including diabetes mellitus type 2 who came to the emergency room with chief complaint of pain in the right foot with swelling and redness, who was found to have evidence of underlying right lower extremity cellulitis, and was admitted to inpatient setting for further treatment and evaluation. Hospital Course The patient was started on empiric antimicrobials. A podiatry and infectious disease consult was obtained. The patient underwent MRI of the right ankle and right foot that was negative for any osteomyelitis. However, the patient had evidence of abscess in the right foot dorsal surface. The patient underwent an incision and drainage of the right foot abscess on 10/24/2018. Cultures showed Staph aureus. Daily dressing changes were done as per podiatry recommendations. The patient has underlying diabetes mellitus type 2. His hemoglobin A1c was found to be 9.2. He was continued on sliding scale insulin along with pre-meal insulin and basal insulin. He was continued on metformin. Upon discharge, he will be continued on metformin 1000 milligrams p.o. twice daily along with sulfonylurea. He was noticed to be hypertensive. He was started on low-dose BROCK inhibitor therapy. The patient was noticed to have normocytic anemia. The patient's H&H remained stable. This could be anemia of chronic disease. Podiatry recommended daily home health for dressing changes of the right foot. However, because of insurance reasons this could not be arranged. Nevertheless, the patient's family was instructed on doing the dressing changes and the supplies were provided for his dressing changes. The patient was instructed to follow-up with wound care clinic at [facility] in 1 week. The patient was also given a postop shoe for the right foot. The patient had a stable hospital course. The patient was cleared by consultants to be discharged home. Discharge Instructions 1. Take medications as per prescription. 2. Take a low-cholesterol, low carbohydrate diet. 3. Resume activities as tolerated. 4. Follow-up with the wound care clinic at [facility] in 1 week. Please call for appointment. 5. Please follow-up with your primary care physician in 2 weeks. 6. Please go to the nearest emergency room if you have persistent fevers, significant pain in the foot. or any other unusual signs/symptoms. The patient was seen in collaboration with Dr. Byrnes. Home Meds Active Scripts Clindamycin Hcl* (Clindamycin Hcl*) 300 Mg Capsule, 300 MG PO Q6 for 7 Days, #28 CAP Prov:SOLOMON SIMEON NP 10/25/18 Glipizide* (Glipizide*) 5 Mg Tablet, 5 MG PO AC BREAKFAST, #30 TAB Prov:SOLOMON SIMEON NP 10/25/18 Lisinopril* (Lisinopril*) 5 Mg Tablet, 5 MG PO DAILY, #30 TAB Prov:SOLOMON SIMEON NP 10/25/18 Cholecalciferol* (Vitamin D3*) 1,000 Unit Tablet, 1000 UNIT PO DAILY, #30 TAB Prov:SLOOMON SIMEON NP 10/25/18 Metformin* (Glucophage*) 500 Mg Tab, 1000 MG PO BID WITH MEALS, #60 TAB Prov:SOLOMON SIMEON NP 10/25/18 Discontinued Reported Medications Glipizide* (Glipizide*) Unknown Strength Tablet, PO BID, TAB 07/25/15 Metformin* (Glucophage*) Unknown Strength Tab, PO BID, TAB 07/25/15 Discontinued Scripts Omeprazole* (Omeprazole*) 40 Mg Capsule.dr, 40 MG PO DAILY, #30 CAP Prov:TIRSO ALBA F 10/17/18 Ibuprofen* (Motrin*) 800 Mg Tab, 800 MG PO Q6H PRN for PAIN AND OR ELEVATED TEMP, #30 TAB Prov:STACYILAERMA VELEZAR F 10/17/18 Cephalexin* (Keflex*) 500 Mg Capsule, 500 MG PO TID for 7 Days, CAP Prov:PASILABANERMAAR F 10/17/18 Cephalexin* (Keflex*) 500 Mg Capsule, 500 MG PO QID for 10 Days, CAP Prov:NICKY JOSEPH PA-C 06/16/18 Sulfamethoxazole/Trimethoprim* (Bactrim Ds* Tablet) 1 Each Tablet, 1 TAB PO BID, #14 TAB Prov:NICKY JOSEPH PA-C 06/16/18 Ibuprofen* (Ibuprofen*) 600 Mg Tablet, 600 MG PO Q6, #20 TAB Prov:FRANCISCO VICENTE MD 07/25/15 Promethazine w/Codeine* (Phenergan w/Codeine* Syrup) 473 Ml Syrup, 10 ML PO Q6H PRN for COUGH, #120 ML Prov:FRANCISCO VICENTE MD 07/25/15 Oseltamivir Phosphate* (Tamiflu*) 75 Mg Capsule, 75 MG PO BID for 5 Days, CAP Prov:FRANCISCO VICENTE MD 07/25/15 Azithromycin* (Zithromax*) 250 Mg Tablet, 250 MG PO .RADHA DIRECTED, #6 TAB TAKE 500 MG (2 TABS) THE FIRST DAY THEN 250 MG (1 TAB) DAYS 2-5 Prov:FRANCISCO VICENTE MD 07/25/15 Follow-up Plan Wound care clinic at [facility]. Please call for appointment. . Primary Care Provider Not On Staff Doctor Time spent on discharge: > 30 minutes Pending Labs Laboratory Tests Test 10/24/18 17:17 10/24/18 22:13 10/25/18 06:53 10/25/18 07:57 Bedside 100 125 149 Glucose mg/dL (70-220) mg/dL (70-220) mg/dL (70-220) White Blood 7.8 Count 10^3/ul (4.8-1 0.8) Red Blood 3.84 Count 10^6/ul (4.70- 6.10) Hemoglobin 11.2 g/dl (14.0-18. 0) Hematocrit 33.6 % (42.0-52.0) Mean 87.5 Corpuscular fl (82.0-101.0 Volume ) Mean 29.2 Corpuscular pg (29.0-33.0) Hemoglobin Mean 33.3 Corpuscular g/dl (32.0-37. Hemoglobin Conc 0) ent Red Cell 11.9 Distribution % (11.5-14.5) Width Platelet Count 338 10^3/UL (140-4 15) Mean Platelet 9.4 Volume fl (7.4-10.4) Immature 0.800 Granulocytes % % (0.001-0.429 ) Neutrophils % 67.4 % (39.0-77.0) Lymphocytes % 19.9 % (15.0-51.0) Monocytes % 8.3 % (0.0-11.0) Eosinophils % 3.1 % (0.0-7.0) Basophils % 0.5 % (0.0-2.0) Nucleated Red 0.0 Blood Cells % /100WBC (0.0-0 .0) Immature 0.060 Granulocytes # 10^3/ul (0.0-0 .031) Neutrophils # 5.3 10^3/ul (1.6-7 .5) Lymphocytes # 1.6 10^3/ul (0.8-2 .9) Monocytes # 0.7 10^3/ul (0.3-0 .9) Eosinophils # 0.2 10^3/ul (0.0-0 .5) Basophils # 0.0 10^3/ul (0.0-0 .1) Nucleated Red 0.0 Blood Cells # 10^3/ul (0.0-0 .0) Sodium Level 142 mmol/L (135-14 4) Potassium 4.5 Level mmol/L (3.5-5. 1) Chloride Level 105 mmol/L (97-110 ) Carbon Dioxide 30 Level mmol/L (21-31) Anion Gap 7 (5-13) Blood Urea 11 Nitrogen mg/dl (7-20) Creatinine 0.63 mg/dl (0.61-1. 24) Est Glomerular > 60 Filtrat mL/min (>60) Rate mL/min Glucose Level 131 mg/dl (70-220) Calcium Level 9.5 mg/dl (8.4-10. 2) Phosphorus 4.3 Level mg/dl (2.5-4.9 ) Magnesium 1.8 Level mg/dl (1.7-2.5 ) Test 10/25/18 11:52 Bedside 105 Glucose mg/dL (70-220) SOLOMON SIMEON NP Oct 25, 2018 15:43
--- NOTE | 2018-10-25 19:05 | CONS ---
Assessment/Plan Assessment/Plan Assessment/Plan (Daily) Right foot cellulitis. Right foot abscess second metatarsophalangeal location. Diabetes with peripheral neuropathy. Plan: Wound cultures showing staph coag neg. Continue with 1/4in iodoform packing with betadine 4x4 gauze, kerlix and joaquim wrap. Appreciate ID recommendations for antibiotic therapy. Patient would benefit from home health care with daily dressing changes and recommend outpatient follow up at [facility] wound care clinic or private office. Contact information provided. Consultation Date/Type/Reason Admit Date/Time Oct 20, 2018 at 00:52 Initial Consult Date Date/Time of Note DATE: 10/25/18 TIME: 19:05 24 HR Interval Summary Free Text/Dictation No acute events overnight. Exam/Review of Systems Exam Vitals Vital Signs Date Temp Pulse Resp B/P (MAP) Pulse Ox O2 O2 Flow FiO2 Time Delivery Rate 10/25/18 98.2 83 20 117/69 97 14:00 (85) 10/21/18 Room Air 15:58 Intake and Output 10/24/18 10/24/18 10/25/18 1515:00 23:00 07:00 IntakeIntake Total 180 ml 250 ml 50 ml OutputOutput Total 600 ml BalanceBalance 180 ml 250 ml -550 ml Exam DP pulse palpable 1+ pitting edema Dorsal right foot ulceration 1.5 x 1.5 x 0.5cm which probes to bone there is fibrogranular wound base without purulent drainage. Periwound erythema noted, no proximal streaking Absent protective sensations Muscle strength 5/5 in all compartments of the foot Results Result Diagram: 10/25/18 0653 10/25/18 0653 Results 24hrs Laboratory Tests Test 10/24/18 22:13 10/25/18 06:53 10/25/18 07:57 10/25/18 11:52 Bedside Glucose 125 149 105 White Blood Count 7.8 Red Blood Count 3.84 L Hemoglobin 11.2 L Hematocrit 33.6 L Mean Corpuscular 87.5 Volume Mean Corpuscular 29.2 Hemoglobin Mean Corpuscular 33.3 Hemoglobin Concent Red Cell 11.9 Distribution Width Platelet Count 338 Mean Platelet Volume 9.4 Immature 0.800 H Granulocytes % Neutrophils % 67.4 Lymphocytes % 19.9 Monocytes % 8.3 Eosinophils % 3.1 Basophils % 0.5 Nucleated Red Blood 0.0 Cells % Immature 0.060 H Granulocytes # Neutrophils # 5.3 Lymphocytes # 1.6 Monocytes # 0.7 Eosinophils # 0.2 Basophils # 0.0 Nucleated Red Blood 0.0 Cells # Sodium Level 142 Potassium Level 4.5 Chloride Level 105 Carbon Dioxide Level 30 Anion Gap 7 Blood Urea Nitrogen 11 Creatinine 0.63 Est Glomerular > 60 Filtrat Rate mL/min Glucose Level 131 Calcium Level 9.5 Phosphorus Level 4.3 Magnesium Level 1.8 Test 10/25/18 17:24 Bedside Glucose 106 Medications Medication Current Medications IV Flush (NS 3 ml) 3 ml PER PROTOCOL IV ; Start 10/20/18 at 03:30 Ondansetron HCl (Zofran Inj) 4 mg Q6H PRN IV NAUSEA/VOMITING; Start 10/20/18 at 03:30 Acetaminophen (Tylenol Tab) 650 mg Q6H PRN PO .PAIN 1-3 OR TEMP; Start 10/20/18 at 03:30 Heparin Sodium (Porcine) (Heparin (5000 Units/1ml)) 5,000 unit Q12 SC Last administered on 10/25/18at 08:46; Admin Dose 5,000 UNIT; Start 10/20/18 at 09:00 Albuterol/ Ipratropium (Duoneb) 3 ml Q2H RESP THERAPY PRN HHN SHORTNESS OF BREATH; Start 10/20/18 at 03:30 Ibuprofen (Motrin) 600 mg Q6 PO Last administered on 10/25/18at 17:27; Admin Dose 600 MG; Start 10/20/18 at 06:00 Promethazine HCl/ Codeine (Phenergan/ Codeine) 10 ml Q6H PRN PO COUGH; Start 10/20/18 at 03:30 Metformin HCl (Glucophage) 1,000 mg BID WITH MEALS PO Last administered on 10/25/18 17:27; Admin Dose 1,000 MG; Start 10/20/18 at 08:00 Diagnostic Test (Pha) (Accu-Chek) 1 ea 02 XX Last administered on 10/21/18at 02:06; Admin Dose 1 EA; Start 10/21/18 at 02:00 Insulin Glargine (Lantus) 14 units DAILY@0800 SC Last administered on 10/25/18 08:23; Admin Dose 14 UNITS; Start 10/20/18 at 08:00 Insulin Aspart (Novolog Insulin Pen) 6 unit WITH MEALS SC Last administered on 10/25/18at 17:26; Admin Dose 6 UNIT; Start 10/20/18 at 07:35 Insulin Aspart (Novolog Insulin Pen) NOVOLOG *MODERATE* ALGORITHM WITH MEALS BEDTIME SC Last administered on 10/25/18at 08:22; Admin Dose 2 UNIT; Start 10/20/18 at 08:00 Pantoprazole (Protonix Tab) 40 mg DAILY@06 PO Last administered on 10/25/18at 06:16; Admin Dose 40 MG; Start 10/20/18 at 06:00 Miscellaneous Information 1 ea NOTE XX ; Start 10/20/18 at 04:00 Glucose (Glutose) 15 gm Q15M PRN PO DECREASED GLUCOSE; Start 10/20/18 at 04:00 Glucose (Glutose) 22.5 gm Q15M PRN PO DECREASED GLUCOSE; Start 10/20/18 at 04:00 Dextrose (D50w Syringe) 25 ml Q15M PRN IV DECREASED GLUCOSE; Start 10/20/18 at 04:00 Dextrose (D50w Syringe) 50 ml Q15M PRN IV DECREASED GLUCOSE; Start 10/20/18 at 04:00 Glucagon (Glucagen) 1 mg Q15M PRN IM DECREASED GLUCOSE; Start 10/20/18 at 04:00 Glucose (Glutose) 15 gm Q15M PRN BUCCAL DECREASED GLUCOSE; Start 10/20/18 at 04:00 Hydralazine HCl (Apresoline) 10 mg Q4H PRN IV ELEVATED BLOOD PRESSURE; Start 10/21/18 at 16:30 Sodium Hypochlorite (Dakins Diluted ()) 1 applic DAILY TP Last administered on 10/25/18at 15:15; Admin Dose 1 APPLIC; Start 10/22/18 at 12:00 Lisinopril (Zestril) 5 mg DAILY PO Last administered on 10/25/18at 08:45; Admin Dose 5 MG; Start 10/24/18 at 09:00 Cholecalciferol (Vitamin D) 1,000 unit DAILY PO Last administered on 10/25/18at 08:46; Admin Dose 1,000 UNIT; Start 10/25/18 at 09:00 Clindamycin HCl/ Dextrose 50 ml @ 50 mls/hr Q8 IVPB Last administered on 10/25/18at 13:48; Admin Dose 50 MLS/HR; Start 10/24/18 at 22:00 YOLIE HOWE DPM Oct 25, 2018 19:05
[2018-10-25 19:40] VITALS: BP 154/81; PULSE 83; RESP 20
== END 2018-10-25 20:19 | disposition home or self-care (01) | DRG 854 ==
LOC: E/R 00:03 → PP2 00:52
PROVIDERS: ADMIT Internal Medicine; ATTEND Internal Medicine
PROC: 0Y9M3ZX Drainage of Right Foot, Percutaneous Approach, Diagnostic (ICD-10-PCS; principal; 2018-10-21)
PROC: 0JBQ0ZZ Excision of Right Foot Subcutaneous Tissue and Fascia, Open Approach (ICD-10-PCS; 2018-10-24)
DX: A41.9 Sepsis, unspecified organism (principal); L03.115 Cellulitis of right lower limb; L02.611 Cutaneous abscess of right foot; E11.42 Type 2 diabetes mellitus with diabetic polyneuropathy; I10 Essential (primary) hypertension; B95.8 Unspecified staphylococcus as the cause of diseases classified elsewhere; Z79.4 Long term (current) use of insulin
CPT/HCPCS: 36415; 71045; 73630; 73718; 73721; 80048; 80053; 80202; 81001; 82306; 82652; 82962; 83036; 83605; 83735; 84100; 84145; 84484; 85025; 85610; 85651; 85730; 86140; 87070; 87086; 93005; 93922; 96374; J0692; J1644; J1815; J2543; J3370; J7030; L3260

== ENCOUNTER 2018-11-01 18:20 | Emergency (ER) | payer MEDICAID ==
[~2018-11-01] VITALS: Ht 170.2 cm; Wt 68.9 kg
[~2018-11-01 18:20] MED LIST changes: -AZIT250T PO; -CEPH-443 PO; +CHOL100062 PO; +CLIN300C10 PO; -CODE118S PO; -IBUP-1542 PO; -IBUP800T48 PO; +LISI-313 PO; -OMEP40CA6 PO; -OSEL75CA23 PO; -SULF1TAB31 PO
[2018-11-01 18:50] VITALS: BP 121/73; PULSE 75; RESP 18; Ht 170.2 cm; Wt 68.9 kg
--- NOTE | 2018-11-02 02:27 | ERD ---
ER Documentation Chief Complaint Chief Complaint wound check right foot wound HPI History of Present Illness: 43-year-old male with past medical history of diabetes and hyperlipidemia coming in today due to complaint of wound check to right foot. Patient reports being released from hospital on October 25 after jordana infection to right foot. Patient has been doing daily wound dressings at home and compliant with medication antibiotics. Denies fever, chills, worsening pain or swelling or redness to affected extremity At home pharmacological/nonpharmacological treatment for symptoms: Prescribed antibiotics Denies social concerns; Denies recent foreign travel ROS All systems reviewed and are negative except as per history of present illness. Medications Home Meds Active Scripts Clindamycin Hcl* (Clindamycin Hcl*) 300 Mg Capsule, 300 MG PO Q6 for 7 Days, #28 CAP Prov:SOLOMON SIMEON NP 10/25/18 Glipizide* (Glipizide*) 5 Mg Tablet, 5 MG PO AC BREAKFAST, #30 TAB Prov:SOLOMON SIMEON NP 10/25/18 Lisinopril* (Lisinopril*) 5 Mg Tablet, 5 MG PO DAILY, #30 TAB Prov:SOLOMON SIMEON NP 10/25/18 Cholecalciferol* (Vitamin D3*) 1,000 Unit Tablet, 1000 UNIT PO DAILY, #30 TAB Prov:SOLOMON SIMEON NP 10/25/18 Metformin* (Glucophage*) 500 Mg Tab, 1000 MG PO BID WITH MEALS, #60 TAB Prov:SOLOMON SIMEON NP 10/25/18 Allergies Allergies: Coded Allergies: No Known Allergy (Unverified , 07/25/15) PMhx/Soc History of Surgery: No Anesthesia Reaction: No Hx Neurological Disorder: No Hx Respiratory Disorders: Yes (bronchitis) Hx Cardiac Disorders: No Hx Psychiatric Problems: No Hx Miscellaneous Medical Probl: No Hx Alcohol Use: Yes (occasionally) Hx Substance Use: No Hx Tobacco Use: No Smoking Status: Never smoker FmHx Family History: diabetes Physical Exam Vitals Vital Signs Date Temp Pulse Resp B/P (MAP) Pulse Ox O2 O2 Flow FiO2 Time Delivery Rate 11/01/18 97.9 75 18 121/73 98 18:50 (89) Physical Exam Const: No acute distress, afebrile Head: Atraumatic Eyes: Normal Conjunctiva ENT: Normal External Ears, Nose and Mouth. Neck: Full range of motion. No meningismus. Resp: Clear to auscultation bilaterally Cardio: Regular rate and rhythm, no murmurs Abd: Soft, non tender, non distended. No guarding, no masses, no rigidity Skin: No petechiae or rashes Back: No midline or flank tenderness Ext: No cyanosis, or edema; right lower extremity: Healing wound noted to dorsal aspect of right foot with puncture of approximately 1 cm, granulating tissue noted, no purulent discharge noted, no warmth, no erythema Neur: Awake and alert x3, speaking in clear sentences, no focal deficits or facial asymmetry Psych: Normal Mood and Affect Procedures/MDM ED COURSE: ED course includes a thorough examination and history. The patient was stable throughout ED course. I kept the patient and/or family informed of laboratory and diagnostic imaging results throughout the ED course. ED course includes wound care MEDICAL DECISION MAKING: Low suspicion for life-threatening medical emergency. Low suspicion for infectious process that requires hospitalization or immediate surgical intervention Otherwise healthy patient presenting with constellation of symptoms likely representing encounter for wound recheck as characterized by history, physical exam findings [, radiologic/lab findings]. Patient reassessment @ 2100: Wound care complete .patient hemodynamically stable. No respiratory distress, otherwise relatively well appearing and nontoxic. Disposition given. Patient educated on diagnoses, prescriptions, follow-up care, return precautions. Strict return precautions given for worsening condition; questions answered discharge. Patient verbalizes understanding of discharge instructions. PRESCRIPTIONS FOR HOME: None DISPOSITION: DISCHARGE At this time, patient is stable for discharge and outpatient management. I have instructed the patient to follow-up with his/her primary care physician in 1-2 days. I have discussed with the patient the possibility of needing to see a specialist for further workup and imaging studies if symptoms persist. I have instructed the patient to promptly return to the ER for any new or worsening symptoms including increased pain, fever, nausea, vomiting, weakness or LOC. The patient and/or family expressed understanding of and agreement with this plan. All questions were answered. Home care instructions were provided. DISCLAIMER: Inadvertent spelling and grammatical errors are likely due to EHR/dictation software use and do not reflect on the overall quality of patient care. Also, please note that the electronic time recorded on this note does not necessarily reflect the actual time of the patient encounter. Departure Diagnosis: Primary Impression: Encounter for wound re-check Condition: Stable Patient Instructions: Post Op Wound Check, Pain Referrals: [facility] () Usted se hendricks hecho un examen mdico de control que le indica que no est en jo-ann condicin que requiera tratamiento urgente en el Departamento de Emergencia. Un estudio ms profundo y el tratamiento de moreno condicin pueden esperar sin ningn riesgo hasta que usted sea atendida/o en el consultorio de moreno mdico o jo-ann clnica. Es responsabilidad suya arreglar jo-ann davon para el seguimiento del east[place]. MANEJO DE CONDICIONES NO URGENTES EN EL FUTURO 1) Si usted tiene un mdico de atencin primaria: Usted debera llamar a moreno mdico de atencin primaria antes de venir al departamento de emergencia. Despus de las horas de consultorio, moreno doctor o moreno asociado/a est disponible por telfono. El mdico o enfermero de dusty en el servicio telefnico puede asesorarle por joann medio para atender el problema, o [place] contrario se puede programar jo-ann davon. 2) Si usted no tiene un mdico de atencin primaria: Llame al mdico o clnica de referencia que aparece abajo iman las horas de consultorio para hacer jo-ann davon para que le vean. CLINICAS: [facility] [phone] [facility] [phone] [facility] [phone] [facility] [phone] [facility] [phone] [facility]. [phone] [address] [facility] () Usted se hendricks hecho un examen mdico de control que le indica que no est en jo-ann condicin que requiera tratamiento urgente en el Departamento de Emergencia. Un estudio ms profundo y el tratamiento de moreno condicin pueden esperar sin ningn riesgo hasta que usted sea atendida/o en el consultorio de moreno mdico o jo-ann clnica. Es responsabilidad suya arreglar jo-ann davon para el seguimiento del [place]. MANEJO DE CONDICIONES NO URGENTES EN EL FUTURO 1) Si usted tiene un mdico de atencin primaria: Usted debera llamar a moreno mdico de atencin primaria antes de venir al departamento de emergencia. Despus de las horas de consultorio, moreno doctor o moreno asociado/a est disponible por telfono. El mdico o enfermero de dusty en el servicio telefnico puede asesorarle por joann medio para atender el problema, o [place] contrario se puede programar jo-ann davon. 2) Si usted no tiene un mdico de atencin primaria: Llame al mdico o condado institucions de referencia que aparece abajo iman las horas de consultorio para hacer jo-ann davon para que le vean. SI USTED NO PUEDE PAGAR PARA STEFFANIE UN MEDICO puede ir a: [facility] [phone] [place] [address] [facility] [address] [place] [address] FORMERLY [facility] [address] [place] [address] [address] [facility] [address] [place], [place] [phone] Additional Instructions: Google Translate utilizado para la traduccin de las siguientes lneas, por fav or, disculpe los errores. Muchas catalina por permitirnos participar en moreno cuidado. Moreno sheila y seguridad es nuestra principal prioridad en [facility]. Es importante leer todas las instrucciones de carlene y la educacin que se proporcionan en moreno paquete de carlene. Llame a moreno mdico de atencin primaria MAANA para jo-ann davon iman los prximos 2 a 4 romeo y lleve toda la informacin y los medicamentos recetados. Llene las recetas y siga exactamente las instrucciones de la etiqueta. Si los sntomas empeoran y moreno proveedor no est disponible, regrese inmediatamente al Departamento de Emergencias. ----- Google Translate used for translation of following lines, please excuse errors. Thank you very much for allowing us to participate in your care. Your health and safety is our top priority at [facility]. It is important to read all discharge instructions and education provided in your discharge packet. Call your primary care doctor TOMORROW for an appointment during the next 2-4 days and bring all the information and medications prescribed. Have prescriptions filled and follow precisely the directions on the label. If the symptoms get worse and your provider is unavailable, return to the Emergency Department immediately. GAYLE PERSON NP Nov 02, 2018 02:27
== END 2018-11-01 21:06 | disposition home or self-care (01) ==
LOC: FTE 18:20
DX: Z48.01 Encounter for change or removal of surgical wound dressing (principal)
CPT/HCPCS: 99281